=== PATIENT | female | born 1935 | race Caucasian/White ===

== ENCOUNTER → 2017-12-01 | Outpatient (CLI) | payer MEDICARE, MEDICAID ==
--- NOTE | 2017-12-01 17:50 | Diagnostic Imaging Report ---
INDICATION: Knee pain. Three views were obtained. FINDINGS: There are stable postsurgical changes of left knee arthroplasty. Hardware is in satisfactory position. Soft tissues are unremarkable. There is no fracture or dislocation. IMPRESSION: Stable left knee arthroplasty. Dictated by: Dictated on workstation # [id number]
== END ==
LOC: RAD 17:05
PROVIDERS: ATTEND Family Medicine
DX: M25.562 Pain in left knee (principal); Z96.652 Presence of left artificial knee joint
CPT/HCPCS: 73562

== ENCOUNTER 2017-12-10 09:26 | Emergency (ER) | payer MEDICARE, MEDICAID ==
[~2017-12-10] VITALS: Ht 162.6 cm; Wt 72.6 kg
[2017-12-10] MEDS ORDERED: NS IV 500 ML 500 ML IV ONE (09:37)
--- NOTE | 2017-12-10 09:44 | ED GI ---
General Stated Complaint: GI BLEED Source of Information: Patient Exam Limitations: Physical Impairments History of Present Illness Date Seen by Provider: Dec 10, 2017 Time Seen by Provider: 09:30 Initial Comments Here with report of large avery colored stool today. Apparently has had some constipation and was given milk of magnesia. She had a small avery colored stool yesterday and then a large or 2 large avery-colored stools today concerning for GI bleed. Patient denies any pain or discomfort. She does have dementia and this does limit the history. Denies vomiting or any pain currently. Timing/Duration: 12 Hours Severity/Quality: Moderate Location: Other (rectal) Radiation: No Radiation Activities at Onset: None Modifying Factors: Worsens With Defecating Associated Symptoms: No Back Pain, No Chest Pain, No Fever/Chills, Fatigue, No Nausea/Vomiting, No Shortness of Air, Weakness Allergies and Home Medications Allergies Coded Allergies: No Known Drug Allergies (Unverified , 12/10/17) Patient Home Medication List Home Medication List Reviewed: Yes Review of Systems Constitutional: see HPI, No chills, No fever Respiratory: No Symptoms Reported Cardiovascular: No Symptoms Reported Gastrointestinal: Constipated, Denies Nausea, Rectal Bleeding, Denies Vomiting Genitourinary: No Symptoms Reported Musculoskeletal: no symptoms reported Other Comments Review of systems Limited by dementia so unable to complete.. All Other Systems Reviewed Negative Unless Noted: No Past Tyfqbyo-Opviuk-Csfsrr Hx Patient Social History Alcohol Use: Denies Use Recreational Drug Use: No Smoking Status: Never a Smoker Surgeries History of Surgeries: No (unknown) Respiratory History of Respiratory Disorde: No Cardiovascular History of Cardiac Disorders: No Neurological History of Neurological Disord: Yes Neurological Disorders: Dementia Genitourinary History of Genitourinary Disor: No Gastrointestinal History of Gastrointestinal Di: No Musculoskeletal History of Musculoskeletal Dis: No Endocrine History of Endocrine Disorders: No Psychosocial History of Psychiatric Problem: Yes Behavioral Health Disorders: Depression Reviewed Nursing Assessment Reviewed/Agree w Nursing PMH: Yes Family Medical History Significant Family History: No Pertinent Family Hx Other Dementia limits history. History from records. Patient has history of dementia , glaucoma, thrombocytopenia, anemia and insomnia per records. Physical Exam Vital Signs VS - Last 72 Hours, by Label 12/10/17 09:29 Temp 96.6 Pulse 56 Resp 12 B/P (MAP) 95/52 (66) Pulse Ox 94 O2 Delivery Room Air Capillary Refill : General Appearance: WD/WN, no apparent distress HEENT: PERRL/EOMI, pharynx normal Neck: full range of motion, supple Respiratory: lungs clear, normal breath sounds Cardiovascular: regular rate, rhythm, no murmur Peripheral Pulses: 2+ Dorsalis Pedis (R), 2+ Left Dors-Pedis (L), 2+ Radial Pulses (R), 2+ Radial Pulses (L) Gastrointestinal: non tender, soft Rectal: blood streaked stool, heme positive stool, No hemorrhoids, No mass, No tenderness Extremities: non-tender, normal inspection Back: normal inspection, no CVA tenderness, no vertebral tenderness Neurologic/Psychiatric: alert, oriented x 3 Skin: normal color, warm/dry Progress/Results/Core Measures Results/Orders Lab Results Laboratory Tests Test 12/10/17 09:45 Range/Units White Blood Count 10.4 4.3-11.0 10^3/uL Red Blood Count 3.88 L 4.35-5.85 10^6/uL Hemoglobin 12.0 11.5-16.0 G/DL Hematocrit 37 35-52 % Mean Corpuscular Volume 94 80-99 FL Mean Corpuscular Hemoglobin 31 25-34 PG Mean Corpuscular Hemoglobin Concent 33 32-36 G/DL Red Cell Distribution Width 13.1 10.0-14.5 % Platelet Count 126 L 130-400 10^3/uL Mean Platelet Volume 10.6 H 7.4-10.4 FL Neutrophils (%) (Auto) 86 H 42-75 % Lymphocytes (%) (Auto) 7 L 12-44 % Monocytes (%) (Auto) 6 0-12 % Eosinophils (%) (Auto) 1 0-10 % Basophils (%) (Auto) 0 0-10 % Neutrophils # (Auto) 8.9 H 1.8-7.8 X 10^3 Lymphocytes # (Auto) 0.7 L 1.0-4.0 X 10^3 Monocytes # (Auto) 0.6 0.0-1.0 X 10^3 Eosinophils # (Auto) 0.1 0.0-0.3 10^3/uL Basophils # (Auto) 0.0 0.0-0.1 10^3/uL Neutrophils % (Manual) 87 % Lymphocytes % (Manual) 8 % Monocytes % (Manual) 4 % Eosinophils % (Manual) 1 % Band Neutrophils % Poikilocytosis SLIGHT Sodium Level 141 135-145 MMOL/L Potassium Level 4.0 3.6-5.0 MMOL/L Chloride Level 107 98-107 MMOL/L Carbon Dioxide Level 21 21-32 MMOL/L Anion Gap 13 5-14 MMOL/L Blood Urea Nitrogen 19 H 7-18 MG/DL Creatinine 0.92 0.60-1.30 MG/DL Estimat Glomerular Filtration Rate 58 BUN/Creatinine Ratio 21 Glucose Level 137 H 70-105 MG/DL Calcium Level 8.6 8.5-10.1 MG/DL Total Bilirubin 1.0 0.1-1.0 MG/DL Aspartate Amino Transf (AST/SGOT) 14 5-34 U/L Alanine Aminotransferase (ALT/SGPT) 12 0-55 U/L Alkaline Phosphatase 49 40-136 U/L Total Protein 6.1 L 6.4-8.2 GM/DL Albumin 3.7 3.2-4.5 GM/DL My Orders Orders - NITIN ERNST MD Cbc With Automated Diff (12/10/17 09:37) Comprehensive Metabolic Panel (12/10/17 09:37) Type And Screen (12/10/17 09:37) Fecal Occult Bedside (12/10/17 09:37) Saline Lock/Iv-Start (12/10/17 09:37) Ns Iv 500 Ml (Sodium Chloride 0.9%) (12/10/17 09:37) Manual Differential (12/10/17 09:45) Ziprasidone Injection (Geodon Injection) (12/10/17 10:42) Water (Sterile) For Injection (Sterile W (12/10/17 10:42) Medications Given in ED Current Medications Medications Dose Ordered Sig/José Route Start Time Stop Time Status Last Admin Dose Admin Sodium Chloride 500 ml @ 0 mls/hr Q0M ONCE IV 12/10/17 09:37 12/10/17 09:39 DC 12/10/17 09:59 500 MLS/HR Sterile Water 20 ml @ ud STK-MED ONCE .ROUTE 12/10/17 10:42 12/10/17 10:47 DC 12/10/17 10:54 1.2 MLS/HR Ziprasidone 20 mg STK-MED ONCE IM 4/5/18 10:42 12/10/17 10:46 DC 12/10/17 10:54 5 MG Vital Signs/I&O Vital Sign - Last 12Hours 12/10/17 09:29 Temp 96.6 Pulse 56 Resp 12 B/P (MAP) 95/52 (66) Pulse Ox 94 O2 Delivery Room Air Progress Note : Progress Note Seen and evaluated. IV by EMS. Labs, Hemoccult stool, normal saline bolus ordered. Monitor patient. Labs reviewed. I did page Dr. Tavares for evaluation. 1200: He has seen the patient in the ER. Hemoglobin is stable and she has not yet active bleeding. She did require Geodon 5 mg IM as she was starting to get some behavioral disturbance. This is not uncommon for her. He will discussed the case with her son who is the power of custom harvester and determine if he would like further evaluation with endoscopy. If he does then Dr. Tavares will set up colonoscopy procedure through the alf. Discharged home with return precautions. Return precautions given to alf. Departure Impression Impression: Primary Impression: Lower GI bleed Disposition: 01 HOME, SELF-CARE Condition: Stable Departure-Patient Inst. Decision time for Depature: 12:08 Referrals: SUE TAVARES RICHARD A DO (PCP/Family) Primary Care Physician Patient Instructions: Gastrointestinal Bleeding Add. Discharge Instructions: Follow-up with Dr. Taveras as needed. Dr. Tavares will talk to the power of custom harvester to discuss options of colonoscopy if the family desires. If so, he will set up colonoscopy and will call the alf for prep and orders. Discharge back to alf. Patient okay to continue current home medications. Return for worse pain, persistent or worsening bleeding or other concerns as needed. Copy Copies To 1: SUE TAVARES DO Copies To 2: GHADA TAVERAS TIMOTHY D MD Dec 10, 2017 09:44
[2017-12-10 10:03] LABS: BASOPHILS % (AUTO) 0 % (0-10); EOSINOPHILS # (AUTO) 0.1 10^3/uL (0.0-0.3); EOSINOPHILS % (AUTO) 1 % (0-10); HEMATOCRIT 37 % (35-52); LYMPHOCYTES # (AUTO) 0.7 X 10^3 (1.0-4.0); LYMPHOCYTES % (AUTO) 7 % (12-44); MEAN CORPUSCULAR HEMOGLOBIN 31 PG (25-34); MEAN CORPUSCULAR HGB CONC 33 G/DL (32-36); MEAN CORPUSCULAR VOLUME 94 FL (80-99); MEAN PLATELET VOLUME 10.6 FL (7.4-10.4); MONOCYTES # (AUTO) 0.6 X 10^3 (0.0-1.0); MONOCYTES % (AUTO) 6 % (0-12); NEUTROPHILS # (AUTO) 8.9 X 10^3 (1.8-7.8); NEUTROPHILS % (AUTO) 86 % (42-75); PLATELET COUNT 126 10^3/uL (130-400); RED BLOOD COUNT 3.88 10^6/uL (4.35-5.85); RED CELL DISTRIBUTION WIDTH 13.1 % (10.0-14.5); WHITE BLOOD COUNT 10.4 10^3/uL (4.3-11.0)
[2017-12-10 10:20] LABS: ALBUMIN 3.7 GM/DL (3.2-4.5); CALCIUM 8.6 MG/DL (8.5-10.1); CREATININE SERUM 0.92 MG/DL (0.60-1.30); TOTAL PROTEIN 6.1 GM/DL (6.4-8.2)
[2017-12-10] MEDS ORDERED: ZIPRASIDONE 20 MG INJ (GEODON) VIAL IM ONE (10:42)
[2017-12-10] MEDS ORDERED: WATER (STERILE) FOR INJECTION 20 ML ONE (10:42)
[2017-12-10 10:43] LABS: EOSINOPHILS % (MANUAL) 1 %; LYMPHOCYTES % (MANUAL) 8 %; MONOCYTES % (MANUAL) 4 %; NEUTROPHILS % (MANUAL) 87 %; POIKILOCYTOSIS SLIGHT
--- NOTE | 2017-12-10 13:04 | Consultation ---
History of Present Illness History of Present Illness Patient Consulted On(yomaira/time) 12/10/17 12:59 Time Seen by Provider: 11:59 History of Present Illness Surgery asked to consult regarding blood per rectum. HPI per ED: Here with report of large avery colored stool today. Apparently has had some constipation and was given milk of magnesia. She had a small avery colored stool yesterday and then a large or 2 large avery-colored stools today concerning for GI bleed. Patient denies any pain or discomfort. She does have dementia and this does limit the history. Denies vomiting or any pain currently. Timing/Duration: 12 Hours Severity/Quality: Moderate Location: Other (rectal) Radiation: No Radiation Activities at Onset: None Modifying Factors: Worsens With Defecating Associated Symptoms: No Back Pain, No Chest Pain, No Fever/Chills, Fatigue, No Nausea/Vomiting, No Shortness of Air, Weakness When seen pt is able to answer some questions (ie pain) but unable to answer anything about bloody BM's. All information obtained from chart. Allergies and Home Medications Allergies Coded Allergies: No Known Drug Allergies (Unverified , 12/10/17) Patient Home Medication List Home Medication List Reviewed: No (not on chart to be able to review them) Past Gajfgzr-Tzqeff-Jfsuir Hx Patient Social History Alcohol Use: Denies Use Recreational Drug Use: No Smoking Status: Never a Smoker Recent Foreign Travel: No Contact w/Someone Who Travel: No Recent Infectious Disease Expo: No Recent Hopitalizations: No Seasonal Allergies Seasonal Allergies: No Surgeries History of Surgeries: No (unknown) Respiratory History of Respiratory Disorde: No Cardiovascular History of Cardiac Disorders: No Neurological History of Neurological Disord: Yes Neurological Disorders: Dementia Genitourinary History of Genitourinary Disor: No Gastrointestinal History of Gastrointestinal Di: No Musculoskeletal History of Musculoskeletal Dis: No Endocrine History of Endocrine Disorders: No HEENT History of HEENT Disorders: No Cancer History of Cancer: No Psychosocial History of Psychiatric Problem: Yes Behavioral Health Disorders: Depression Integumentary History of Skin or Integumenta: No Blood Transfusions History of Blood Disorders: No Adverse Reaction to a Blood Tr: No Reviewed Nursing Assessment Reviewed/Agree w Nursing PMH: Yes Family Medical History Significant Family History: No Pertinent Family Hx (unable to obtain from pt) Review of Systems-General ROS-Unable to Obtain: Pt is demented and does not really answer questions Physical Exam-General Problems Physical Exam Vital Signs Vital Signs - First Documented 12/10/17 09:29 Temp 96.6 Pulse 56 Resp 12 B/P (MAP) 95/52 (66) Pulse Ox 94 O2 Delivery Room Air Capillary Refill : Less Than 3 Seconds General Appearance: WD/WN, no apparent distress Eyes: Bilateral Eye PERRL, Bilateral Eye EOMI HEENT: No scleral icterus (R), No scleral icterus (L), No pale conjunctivae (R) , No pale conjunctivae (L) Neck: supple, No thyromegaly Respiratory: lungs clear, normal breath sounds, no respiratory distress, no accessory muscle use Cardiovascular: no edema, no murmur, bradycardia Gastrointestinal: normal bowel sounds, non tender, soft, no organomegaly, no pulsatile mass Back: no CVA tenderness, no vertebral tenderness Extremities: no pedal edema, no calf tenderness Neurologic/Psychiatric: cloth neutralizer II-XII nml as tested, disoriented x 3 Skin: normal color, warm/dry Lymphatic: no adenopathy (neck, axilla or groin) Data Review Labs Laboratory Tests 12/10/17 09:45: White Blood Count 10.4, Red Blood Count 3.88L, Hemoglobin 12.0, Hematocrit 37, Mean Corpuscular Volume 94, Mean Corpuscular Hemoglobin 31, Mean Corpuscular Hemoglobin Concent 33, Red Cell Distribution Width 13.1, Platelet Count 126L, Mean Platelet Volume 10.6H, Neutrophils (%) (Auto) 86H, Lymphocytes (%) (Auto) 7L, Monocytes (%) (Auto) 6, Eosinophils (%) (Auto) 1, Basophils (%) (Auto) 0, Neutrophils # (Auto) 8.9H, Lymphocytes # (Auto) 0.7L, Monocytes # (Auto) 0.6, Eosinophils # (Auto) 0.1, Basophils # (Auto) 0.0, Neutrophils % (Manual) 87, Lymphocytes % (Manual) 8, Monocytes % (Manual) 4, Eosinophils % (Manual) 1, Band Neutrophils , Poikilocytosis SLIGHT, Sodium Level 141, Potassium Level 4.0 , Chloride Level 107, Carbon Dioxide Level 21, Anion Gap 13, Blood Urea Nitrogen 19H, Creatinine 0.92, Estimat Glomerular Filtration Rate 58, BUN/ Creatinine Ratio 21, Glucose Level 137H, Calcium Level 8.6, Total Bilirubin 1.0 , Aspartate Amino Transf (AST/SGOT) 14, Alanine Aminotransferase (ALT/SGPT) 12, Alkaline Phosphatase 49, Total Protein 6.1L, Albumin 3.7 Assessment/Plan Assessment/Plan Assessment/Plan Rectal Bleed Dementia Glaucoma Thrombocytopenia Pt's hemoglobin was 12; therefore pt is not anemic and in no distress. She probably needs a colonoscopy; she told me she had never had one. However, first I would like to get in touch with her power of workers compensation attorney and find out how aggressive the family wants to be. I agree with discharging pt back to snf and can set up colonoscopy, prep etc as an outpt after talking to family. At that time can then plan next step (ie surgery) if needed and wanted. Thank you for this consult. SUE TAVARES DO Dec 10, 2017 13:04
[2017-12-10 13:44] VITALS: BP 142/68
== END 2017-12-10 13:44 | disposition home or self-care (01) ==
LOC: EDUNIT# 09:26 → ER 09:28
DX: K92.2 Gastrointestinal hemorrhage, unspecified (principal); F03.90 Unspecified dementia, unspecified severity, without behavioral disturbance, psychotic disturbance, mood disturbance, and anxiety; F32.9 Major depressive disorder, single episode, unspecified
CPT/HCPCS: 36415; 80053; 85007; 85027; 86850; 86900; 86901; 96360; 96372; 99284

== ENCOUNTER 2018-04-09 08:03 | Emergency (ER) | payer MEDICARE, MEDICAID ==
[~2018-04-09] VITALS: Ht 162.6 cm; Wt 68.0 kg
[2018-04-09 08:18] LABS: BASOPHILS % (AUTO) 1 % (0-10); EOSINOPHILS # (AUTO) 0.2 10^3/uL (0.0-0.3); EOSINOPHILS % (AUTO) 4 % (0-10); HEMATOCRIT 39 % (35-52); HEMOGLOBIN 12.9 G/DL (11.5-16.0); LYMPHOCYTES # (AUTO) 1.4 X 10^3 (1.0-4.0); LYMPHOCYTES % (AUTO) 26 % (12-44); MEAN CORPUSCULAR HEMOGLOBIN 31 PG (25-34); MEAN CORPUSCULAR HGB CONC 33 G/DL (32-36); MEAN CORPUSCULAR VOLUME 94 FL (80-99); MEAN PLATELET VOLUME 11.4 FL (7.4-10.4); MONOCYTES # (AUTO) 0.4 X 10^3 (0.0-1.0); MONOCYTES % (AUTO) 8 % (0-12); NEUTROPHILS # (AUTO) 3.4 X 10^3 (1.8-7.8); NEUTROPHILS % (AUTO) 63 % (42-75); PLATELET COUNT 97 10^3/uL (130-400); RED BLOOD COUNT 4.11 10^6/uL (4.35-5.85); RED CELL DISTRIBUTION WIDTH 14.4 % (10.0-14.5); WHITE BLOOD COUNT 5.5 10^3/uL (4.3-11.0)
--- NOTE | 2018-04-09 08:22 | ED Trauma-Multisystem ---
General Chief Complaint: Trauma-Non Activation Stated Complaint: FALL Source of Information: EMS, Skilled Nursing Records Exam Limitations: No Limitations History of Present Illness Date Seen by Provider: Apr 09, 2018 Time Seen by Provider: 08:18 Initial Comments The patient is an 82-year-old white female resident [facility] a [facility] she is demented. She was observed while walking back to her room following breakfast to drop to her knees and then pitch forward onto her head. There was no apparent loss of consciousness. Some sort of motor activity was observed by the staff. Occurred: Just Prior to Arrival Pain/Injury Location: Face, Head Method of Injury: Fall Allergies and Home Medications Allergies Coded Allergies: No Known Drug Allergies (Unverified , 12/10/17) Patient Home Medication List Home Medication List Reviewed: Yes Review of Systems Constitutional: see HPI, other (she is unable to give any history) Past Zlkxjgj-Pdnsil-Wywtao Hx Patient Social History Alcohol Use: Denies Use Recreational Drug Use: No Smoking Status: Unknown if Ever Smoked Recent Hopitalizations: No Seasonal Allergies Seasonal Allergies: No Past Medical History Surgeries: No (unknown) Respiratory: No Cardiac: No Neurological: Yes Dementia Genitourinary: No Gastrointestinal: No Musculoskeletal: No Endocrine: No HEENT: No Cancer: No Psychosocial: Yes Depression Integumentary: No Blood Disorders: No Adverse Reaction/Blood Tranf: No Family Medical History No Pertinent Family Hx Physical Exam Vital Signs Vital Signs - First Documented 04/09/18 08:05 Temp 96.4 Pulse 112 Resp 18 B/P (MAP) 166/88 (114) Pulse Ox 95 O2 Delivery Room Air Height, Weight, BMI Height: 5'4.00" Weight: 160lbs. oz. [id number]; BMI Method:Estimated General Appearance: Other Eyes: Bilateral Eye Normal Inspection Cardiovascular: Regular Rate, Rhythm, No Edema, No Gallop, No JVD, No Murmur, Normal Peripheral Pulses Respiratory: Chest Non Tender, Lungs Clear, Normal Breath Sounds, No Accessory Muscle Use, No Respiratory Distress Gastrointestinal: Normal Bowel Sounds, No Organomegaly Back: Normal Inspection, No CVA Tenderness, No Vertebral Tenderness Extremity: Normal Capillary Refill [place] Coma Score Best Eye Response (Jax): (3) Open to Voice Best Verbal Response (Jax): (1) No Verbal Response Best Motor Response (Jax): (1) No Motor Response [place] Total: 15 (5) Progress/Results/Core Measures Results/Orders Lab Results Laboratory Tests Test 04/09/18 08:10 04/09/18 08:41 Range/Units White Blood Count 5.5 4.3-11.0 10^3/uL Red Blood Count 4.11 L 4.35-5.85 10^6/uL Hemoglobin 12.9 11.5-16.0 G/DL Hematocrit 39 35-52 % Mean Corpuscular Volume 94 80-99 FL Mean Corpuscular Hemoglobin 31 25-34 PG Mean Corpuscular Hemoglobin Concent 33 32-36 G/DL Red Cell Distribution Width 14.4 10.0-14.5 % Platelet Count 97 L 130-400 10^3/uL Mean Platelet Volume 11.4 H 7.4-10.4 FL Neutrophils (%) (Auto) 63 42-75 % Lymphocytes (%) (Auto) 26 12-44 % Monocytes (%) (Auto) 8 0-12 % Eosinophils (%) (Auto) 4 0-10 % Basophils (%) (Auto) 1 0-10 % Neutrophils # (Auto) 3.4 1.8-7.8 X 10^3 Lymphocytes # (Auto) 1.4 1.0-4.0 X 10^3 Monocytes # (Auto) 0.4 0.0-1.0 X 10^3 Eosinophils # (Auto) 0.2 0.0-0.3 10^3/uL Basophils # (Auto) 0.0 0.0-0.1 10^3/uL Sodium Level 147 H 135-145 MMOL/L Potassium Level 3.6 3.6-5.0 MMOL/L Chloride Level 112 H 98-107 MMOL/L Carbon Dioxide Level 21 21-32 MMOL/L Anion Gap 14 5-14 MMOL/L Blood Urea Nitrogen 17 7-18 MG/DL Creatinine 0.76 0.60-1.30 MG/DL Estimat Glomerular Filtration Rate > 60 BUN/Creatinine Ratio 22 Glucose Level 159 H 70-105 MG/DL Glucometer 143 H 70-110 MG/DL Calcium Level 8.9 8.5-10.1 MG/DL Total Bilirubin 0.8 0.1-1.0 MG/DL Aspartate Amino Transf (AST/SGOT) 13 5-34 U/L Alanine Aminotransferase (ALT/SGPT) 11 0-55 U/L Alkaline Phosphatase 43 40-136 U/L Total Protein 6.5 6.4-8.2 GM/DL Albumin 4.1 3.2-4.5 GM/DL Urine Color YELLOW Urine Clarity SLIGHTLY CLOUDY Urine pH 6 5-9 Urine Specific [place] 1.020 1.016-1.022 Urine Protein 2+ H NEGATIVE Urine Glucose (UA) NEGATIVE NEGATIVE Urine Ketones NEGATIVE NEGATIVE Urine Nitrite POSITIVE H NEGATIVE Urine Bilirubin NEGATIVE NEGATIVE Urine Urobilinogen NORMAL NORMAL MG/DL Urine Leukocyte Esterase 2+ H NEGATIVE Urine RBC (Auto) 2+ H NEGATIVE Urine RBC 0-2 /HPF Urine WBC 10-25 H /HPF Urine Squamous Epithelial Cells 5-10 /HPF Urine Crystals NONE /LPF Urine Bacteria LARGE H /HPF Urine Casts NONE /LPF Urine Mucus NEGATIVE /LPF Urine Culture Indicated YES My Orders Orders - ROLO NGUYEN MD Cbc With Automated Diff (04/09/18 08:10) Comprehensive Metabolic Panel (04/09/18 08:10) Ua Culture If Indicated (04/09/18 08:10) Ct Head/Cervical Spine Wo (04/09/18 08:10) Urine Culture (04/09/18 08:41) Vital Signs/I&O 04/09/18 08:05 Temp 96.4 Pulse 112 Resp 18 B/P (MAP) 166/88 (114) Pulse Ox 95 O2 Delivery Room Air Departure Communication (Admissions) 09 15. Radiology reports that the patient has a new very small subdural hematoma in the region of a previous subdural with almost calcified blood. There is considerable atrophy in the right parietal area. Discussed with Dr. Taveras at 09. Plan will be [facility] with neurochecks periodically. 0938. The CT images were shared with the patient's daughter. She reports there had been an injury to the head in the fall many years ago. No scanning was done. Therefore the age of the old subdural is unknown. Impression Primary Impression: fall with very small subdural hematoma Additional Impression: UTI Disposition: 01 HOME, SELF-CARE Condition: Stable/Unchanged Departure-Patient Inst. Decision time for Depature: 09:24 Referrals: GHADA TAVERAS DO (PCP/Family) Primary Care Physician Add. Discharge Instructions: All discharge instructions reviewed with patient and/or family. Voiced understanding. Neuro checks every 2 hours for the next 8 then every 4 hours to complete 24 hours. Omnicef for UTI. ROLO NGUYEN MD Apr 09, 2018 08:22
[2018-04-09 08:37] LABS: ALANINE AMINOTRANSFERASE 11 U/L (0-55); ALBUMIN 4.1 GM/DL (3.2-4.5); ALKALINE PHOSPHATASE 43 U/L (40-136); BILIRUBIN,TOTAL 0.8 MG/DL (0.1-1.0); BUN/CREATININE RATIO 22; CALCIUM 8.9 MG/DL (8.5-10.1); CARBON DIOXIDE 21 MMOL/L (21-32); CHLORIDE 112 MMOL/L (98-107); CREATININE SERUM 0.76 MG/DL (0.60-1.30); GFR ESTIMATED > 60; GLUCOSE 159 MG/DL (70-105); POTASSIUM 3.6 MMOL/L (3.6-5.0); SODIUM 147 MMOL/L (135-145); TOTAL PROTEIN 6.5 GM/DL (6.4-8.2)
[2018-04-09 08:52] LABS: BILIRUBIN,URINE NEGATIVE (NEGATIVE); CLARITY,URINE SLIGHTLY CLOUDY; COLOR,URINE YELLOW; GLUCOSE, URINE (UA) NEGATIVE (NEGATIVE); KETONES,URINE NEGATIVE (NEGATIVE); LEUKOCYTE ESTERASE ,URINE 2+ (NEGATIVE); NITRITE,URINE POSITIVE (NEGATIVE); PH,URINE 6 (5-9); PROTEIN,URINE 2+ (NEGATIVE); UROBILINOGEN,URINE NORMAL (NORMAL)
[2018-04-09] MEDS ORDERED: BIMA2.5D4 (09:10)
[2018-04-09 09:12] LABS: BACTERIA,URINE LARGE /HPF; RBC,URINE 0-2 /HPF
--- NOTE | 2018-04-09 09:15 | Diagnostic Imaging Report ---
PROCEDURE: CT head and CT cervical spine without contrast. TECHNIQUE: Multiple contiguous axial images were obtained through the brain and cervical spine without the use of intravenous contrast. Sagittal and coronal reformations through the cervical spine were then performed. INDICATION: Fall. Head injury. Possible seizure. COMPARISON: None. FINDINGS: CT HEAD: Low-attenuation extra-axial fluid overlying the right parietal lobe measures up to 2.3 cm maximal thickness. There is also hyperattenuation within this extra-axial collection anteriorly suspicious for acute to subacute blood products. Thin layer of subdural blood products extends anteriorly along the right temporal lobe measuring up to 0.4 cm in thickness. Advanced generalized cerebral and cerebellar parenchymal volume loss. Advanced leukoaraiosis. No CT evidence of acute infarction. Prominence of the ventricular system is proportional to the degree of atrophy. Homer cisterna magna. Osseous structures are intact. The paranasal sinuses and mastoids are clear. CT CERVICAL SPINE: Normal alignment. Vertebral body heights are preserved. No fractures. Minimal spondylotic changes. No evidence of spinal canal or neural foraminal narrowing. Moderate atherosclerotic calcifications including the carotid bifurcations. The visualized paravertebral soft tissues are otherwise unremarkable. IMPRESSION: 1. Extra-axial generally low attenuation fluid collection overlying the right parietal lobe contains areas of hyperattenuation anteriorly and is suspicious for an acute on chronic subdural hemorrhage. There is also a thin layer of subdural hemorrhage extending anteriorly from this along the right temporal lobe. 2. No acute CT findings in the cervical spine. Findings discussed with Dr. Tyrone Reyna at 9:10 a.m. on 04/09/2018. Dictated by: Dictated on workstation # [id number]
[2018-04-09] MEDS ORDERED: CEFD300C3 PO (09:40)
[2018-04-09] MEDS ORDERED: cefTRIAXone INJECTION 1,000 MG in NS (IVPB) 50 ML IV ONE (09:45)
[2018-04-09 11:35] VITALS: BP 155/73
== END 2018-04-09 11:35 | disposition home or self-care (01) ==
LOC: EDUNIT# 08:03 → ER 08:06
DX: S06.5X0A Traumatic subdural hemorrhage without loss of consciousness, initial encounter (principal); N39.0 Urinary tract infection, site not specified; R40.2142 Coma scale, eyes open, spontaneous, at arrival to emergency department; R40.2252 Coma scale, best verbal response, oriented, at arrival to emergency department; R40.2362 Coma scale, best motor response, obeys commands, at arrival to emergency department; F03.90 Unspecified dementia, unspecified severity, without behavioral disturbance, psychotic disturbance, mood disturbance, and anxiety; F32.9 Major depressive disorder, single episode, unspecified; W01.198A Fall on same level from slipping, tripping and stumbling with subsequent striking against other object, initial encounter
CPT/HCPCS: 36415; 51701; 70450; 72125; 80053; 81000; 82962; 85025; 87088; 87186; 96374

== ENCOUNTER 2018-05-25 13:07 | Inpatient (IN) | payer MEDICARE, MEDICAID ==
[~2018-05-25] VITALS: Ht 172.7 cm; Wt 65.2 kg
[~2018-05-25 13:07] MED LIST: BIMA2.5D4 OD; CEFD300C3 PO
[2018-05-25 13:30] LABS: BASOPHILS % (AUTO) 0 % (0-10); EOSINOPHILS # (AUTO) 0.1 10^3/uL (0.0-0.3); EOSINOPHILS % (AUTO) 1 % (0-10); HEMATOCRIT 35 % (35-52); HEMOGLOBIN 11.8 G/DL (11.5-16.0); LYMPHOCYTES # (AUTO) 0.9 X 10^3 (1.0-4.0); LYMPHOCYTES % (AUTO) 17 % (12-44); MEAN CORPUSCULAR HEMOGLOBIN 31 PG (25-34); MEAN CORPUSCULAR HGB CONC 34 G/DL (32-36); MEAN CORPUSCULAR VOLUME 92 FL (80-99); MEAN PLATELET VOLUME 11.5 FL (7.4-10.4); MONOCYTES # (AUTO) 0.4 X 10^3 (0.0-1.0); MONOCYTES % (AUTO) 8 % (0-12); NEUTROPHILS # (AUTO) 3.9 X 10^3 (1.8-7.8); NEUTROPHILS % (AUTO) 73 % (42-75); PLATELET COUNT 116 10^3/uL (130-400); RED BLOOD COUNT 3.84 10^6/uL (4.35-5.85); RED CELL DISTRIBUTION WIDTH 13.6 % (10.0-14.5); WHITE BLOOD COUNT 5.3 10^3/uL (4.3-11.0)
[2018-05-25 13:45] LABS: ALANINE AMINOTRANSFERASE 12 U/L (0-55); ALBUMIN 3.5 GM/DL (3.2-4.5); ALKALINE PHOSPHATASE 45 U/L (40-136); BILIRUBIN,TOTAL 0.6 MG/DL (0.1-1.0); BUN/CREATININE RATIO 22; CALCIUM 8.7 MG/DL (8.5-10.1); CARBON DIOXIDE 25 MMOL/L (21-32); CHLORIDE 114 MMOL/L (98-107); CREATININE SERUM 0.63 MG/DL (0.60-1.30); GFR ESTIMATED > 60; GLUCOSE 98 MG/DL (70-105); POTASSIUM 3.5 MMOL/L (3.6-5.0); SODIUM 148 MMOL/L (135-145); TOTAL PROTEIN 5.7 GM/DL (6.4-8.2)
[2018-05-25 13:50] LABS: FIBRIN DEGRADATION PRODUCTS 9.97 UG/ML (0.00-0.49); INR 1.2 (0.8-1.4); PROTHROMBIN TIME PATIENT 14.9 SEC (12.2-14.7)
--- NOTE | 2018-05-25 13:57 | Diagnostic Imaging Report ---
INDICATION: Unresponsive. TECHNIQUE: Axial imaging through the brain was performed without contrast. COMPARISON: Correlation is made with prior head CT from 04/09/2018. FINDINGS: Ventricles and sulci are prominent consistent with the patient's age. Periventricular low density persists consistent with senescent changes. Cerebellar volume loss is again seen. There is no sulcal effacement or midline shift. No acute intra-axial or extra-axial hemorrhage is seen. Previously noted acute on chronic subdural hematoma along the right cerebral convexity has resolved. Cisterns are patent. Visualized paranasal sinuses are clear. IMPRESSION: Chronic and senescent changes. No acute intracranial process is detected. Results were called to Dr. Dixon of the emergency department prior to this dictation. Dictated by: Dictated on workstation # [id number]
--- NOTE | 2018-05-25 14:04 | Diagnostic Imaging Report ---
INDICATION: Unresponsive. TIME OF EXAMINATION: 01:33 p.m. COMPARISON: No prior studies are available for comparison. FINDINGS: The heart size is normal. The pulmonary vascularity is unremarkable. The lungs are clear. No infiltrate, effusion or pneumothorax is detected. IMPRESSION: No acute cardiopulmonary process is detected. Dictated by: Dictated on workstation # [id number]
[2018-05-25 14:05] LABS: CLARITY,URINE CLEAR; COLOR,URINE YELLOW; GLUCOSE, URINE (UA) NEGATIVE (NEGATIVE); KETONES,URINE NEGATIVE (NEGATIVE); LEUKOCYTE ESTERASE ,URINE 3+ (NEGATIVE); NITRITE,URINE POSITIVE (NEGATIVE); PH,URINE 5 (5-9); PROTEIN,URINE 2+ (NEGATIVE); UROBILINOGEN,URINE 1 MG/DL (NORMAL)
[2018-05-25 14:20] LABS: BACTERIA,URINE LARGE /HPF; BILIRUBIN,URINE 1+ (NEGATIVE); RBC,URINE 0-2 /HPF
[2018-05-25] MEDS ORDERED: DONE10TA12 PO (14:24)
[2018-05-25] MEDS ORDERED: CYAN1TAB26 PO (14:24)
[2018-05-25] MEDS ORDERED: FERR325T18 PO (14:24)
[2018-05-25] MEDS ORDERED: DOCU-143 PO (14:24)
[2018-05-25] MEDS ORDERED: cefTRIAXone FOR IV USE 1,000 MG in NS (IVPB) 50 ML IV ONE (14:45)
--- NOTE | 2018-05-25 15:09 | ED General ---
General Chief Complaint: Neuro-Stroke Like Symptoms Stated Complaint: UNRESPONSIVE Nursing Triage Note: EMS STAFF PASS ON THAT THE PT WAS FOUND LESS RESPONSIVE AFTER LAYING DOWN FROM A NAP. PT IS RESPONSIVE CHEIFLY TO STIMULI UPON PRESENTATION. PT HAS A HX OF INTRACRANIAL HEMORRHAGE FROM ONE MONTH PRIOR D/T FALL Nursing Sepsis Screen: No Definite Risk Source of Information: EMS, Long-Term Records, Old Records Exam Limitations: Physical Impairments History of Present Illness Date Seen by Provider: May 25, 2018 Time Seen by Provider: 13:09 Initial Comments This 82-year-old woman presents to the emergency room after being found unresponsive by correction staff. Patient had a fall about 6 weeks ago resulting in intracranial bleed. She seemed to be recovering well from that. Today she was out and about in the correction pacing as she usually does. She was last seen in her normal condition at around 10:00. When staff went to check on her between 12:00 and 12:15, they found her to be unresponsive. EMS was activated. Patient was only responsive to painful stimuli for EMS. Stroke activation was paged. Patient is not a TPA candidate due to recent intracranial bleed. Allergies and Home Medications Allergies Coded Allergies: No Known Drug Allergies (Unverified , 12/10/17) Home Medications Cefdinir 300 Mg Capsule, 300 MG PO twice a day Began on a.m. 04/10 Prescribed by: ROLO NGUYEN on 04/09/18 0940 Docusate Sodium 100 Mg Capsule, 100 MG PO DAILY, (Reported) Patient Home Medication List Home Medication List Reviewed: Yes Review of Systems Review of Systems Constitutional: see HPI EENTM: see HPI Respiratory: no symptoms reported Cardiovascular: no symptoms reported Gastrointestinal: no symptoms reported Genitourinary: no symptoms reported : No Musculoskeletal: no symptoms reported Skin: no symptoms reported Psychiatric/Neurological: See HPI Hematologic/Lymphatic: No Symptoms Reported Immunological/Allergic: no symptoms reported Past Ajfhesa-Mgiehe-Pmqxpi Hx Past Med/Social Hx: Reviewed Nursing Past Med/Soc Hx Patient Social History Alcohol Use: Denies Use Recreational Drug Use: No Smoking Status: Former Smoker Recent Foreign Travel: No Contact w/Someone Who Travel: No Recent Infectious Disease Expo: No Recent Hopitalizations: No Seasonal Allergies Seasonal Allergies: No Past Medical History Surgeries: No (unknown) Respiratory: No Cardiac: No Neurological: Yes Dementia, Stroke : No Genitourinary: Yes UTI-Chronic Gastrointestinal: Yes Chronic Constipation Musculoskeletal: No Endocrine: No HEENT: No Cancer: No Psychosocial: Yes Depression Integumentary: No Blood Disorders: Yes (ANEMIA) Adverse Reaction/Blood Tranf: No Family Medical History No Pertinent Family Hx Physical Exam Vital Signs Vital Signs - First Documented 05/25/18 13:07 Temp 97.3 Pulse 51 Resp 18 B/P (MAP) 126/64 (84) Pulse Ox 97 O2 Delivery Room Air Capillary Refill : Less Than 3 Seconds Height, Weight, BMI Height: 5'8.00" Weight: 180lbs. oz. 81.319972nf; BMI Method:Stated General Appearance: WD/WN, Other (Minimally responsive) HEENT: Normal ENT Inspection, Other (Pupils constricted but equal bilaterally) Neck: Normal Inspection ( but equal bilaterally) Respiratory: Lungs Clear, Normal Breath Sounds, No Accessory Muscle Use, No Respiratory Distress Cardiovascular: Regular Rate, Rhythm, No Edema, No Murmur, Normal Peripheral Pulses Gastrointestinal: Normal Bowel Sounds, Non Tender, Soft Extremity: Normal Inspection, No Pedal Edema Neurologic/Psychiatric: Other (Patient is minimally responsive. She will sometimes open her eyes on command. She does have some spontaneous purposeful movement such as scratching and itching. She is primarily a phasic. She does holler "ouch" to painful stimuli on bilateral extremities. Patient has answered some questions with one-word answers) Skin: Normal Color, Warm/Dry Progress/Results/Core Measures Suspected Sepsis Recent Fever Within 48 Hours: No Infection Criteria Present: None New/Unexplained Altered Menta: No Sepsis Screen: No Definite Risk SIRS Temperature:97.3 Pulse: 51 Respiratory Rate: 18 Laboratory Tests 05/25/18 13:07: White Blood Count 5.3 Blood Pressure 126 /64 Mean: 84 Laboratory Tests 05/25/18 13:07: Creatinine 0.63, INR Comment 1.2, Platelet Count 116L, Total Bilirubin 0.6 Results/Orders Lab Results Laboratory Tests Test 05/25/18 13:07 05/25/18 13:54 Range/Units White Blood Count 5.3 4.3-11.0 10^3/uL Red Blood Count 3.84 L 4.35-5.85 10^6/uL Hemoglobin 11.8 11.5-16.0 G/DL Hematocrit 35 35-52 % Mean Corpuscular Volume 92 80-99 FL Mean Corpuscular Hemoglobin 31 25-34 PG Mean Corpuscular Hemoglobin Concent 34 32-36 G/DL Red Cell Distribution Width 13.6 10.0-14.5 % Platelet Count 116 L 130-400 10^3/uL Mean Platelet Volume 11.5 H 7.4-10.4 FL Neutrophils (%) (Auto) 73 42-75 % Lymphocytes (%) (Auto) 17 12-44 % Monocytes (%) (Auto) 8 0-12 % Eosinophils (%) (Auto) 1 0-10 % Basophils (%) (Auto) 0 0-10 % Neutrophils # (Auto) 3.9 1.8-7.8 X 10^3 Lymphocytes # (Auto) 0.9 L 1.0-4.0 X 10^3 Monocytes # (Auto) 0.4 0.0-1.0 X 10^3 Eosinophils # (Auto) 0.1 0.0-0.3 10^3/uL Basophils # (Auto) 0.0 0.0-0.1 10^3/uL Prothrombin Time 14.9 H 12.2-14.7 SEC INR Comment 1.2 0.8-1.4 Activated Partial Thromboplast Time 27 24-35 SEC D-Dimer 9.97 H 0.00-0.49 UG/ML Sodium Level 148 H 135-145 MMOL/L Potassium Level 3.5 L 3.6-5.0 MMOL/L Chloride Level 114 H 98-107 MMOL/L Carbon Dioxide Level 25 21-32 MMOL/L Anion Gap 9 5-14 MMOL/L Blood Urea Nitrogen 14 7-18 MG/DL Creatinine 0.63 0.60-1.30 MG/DL Estimat Glomerular Filtration Rate > 60 BUN/Creatinine Ratio 22 Glucose Level 98 70-105 MG/DL Calcium Level 8.7 8.5-10.1 MG/DL Corrected Calcium 9.1 8.5-10.1 MG/DL Total Bilirubin 0.6 0.1-1.0 MG/DL Aspartate Amino Transf (AST/SGOT) 11 5-34 U/L Alanine Aminotransferase (ALT/SGPT) 12 0-55 U/L Alkaline Phosphatase 45 40-136 U/L Troponin I < 0.30 <0.30 NG/ML Total Protein 5.7 L 6.4-8.2 GM/DL Albumin 3.5 3.2-4.5 GM/DL Urine Color YELLOW Urine Clarity CLEAR Urine pH 5 5-9 Urine Specific [place] 1.025 H 1.016-1.022 Urine Protein 2+ H NEGATIVE Urine Glucose (UA) NEGATIVE NEGATIVE Urine Ketones NEGATIVE NEGATIVE Urine Nitrite POSITIVE H NEGATIVE Urine Bilirubin 1+ H NEGATIVE Urine Urobilinogen 1 NORMAL MG/DL Urine Leukocyte Esterase 3+ H NEGATIVE Urine RBC (Auto) 3+ H NEGATIVE Urine RBC 0-2 /HPF Urine WBC 10-25 H /HPF Urine Squamous Epithelial Cells 5-10 /HPF Urine Crystals NONE /LPF Urine Bacteria LARGE H /HPF Urine Casts NONE /LPF Urine Mucus NEGATIVE /LPF Urine Culture Indicated YES Micro Results Microbiology 05/25/18 Urine Culture - Preliminary, Resulted Sent To [facility] My Orders Orders - LUIS DIXON MD Cbc With Automated Diff (05/25/18 13:19) Protime With Inr (05/25/18 13:19) Partial Thromboplastin Time (05/25/18 13:19) Comprehensive Metabolic Panel (05/25/18 13:19) Fibrin Degradation Products (05/25/18 13:19) Troponin I (05/25/18 13:19) Ua Culture If Indicated (05/25/18 13:19) Chest 1 View, Ap/Pa Only (05/25/18 13:19) Catheter(Urinary) Insert & Ass 03,15 (05/25/18 13:19) Ekg Tracing (05/25/18 13:19) Nothing By Mouth (05/25/18 Dinner) Accucheck Stat ONCE (05/25/18 13:19) Saline Lock/Iv-Start (05/25/18 13:19) Saline Lock/Iv-Start (05/25/18 13:19) Vital Signs Stroke Patient Q15M (05/25/18 13:19) Ct Head Wo-R/O Stroke (05/25/18 13:19) O2 (05/25/18 13:19) Intake & Output 06,14,22 (05/25/18 13:19) Monitor-Rhythm Ecg Trace Only (05/25/18 13:19) Dysphagia Screening Tool (05/25/18 13:19) Post Thrombolytic Adminstratio (05/25/18 13:19) Lipid Panel (05/26/18 06:00) Urine Culture (05/25/18 13:54) Ceftriaxone For Iv Use (Rocephin For I (05/25/18 14:45) Ct Angio Head/Neck (05/25/18 20:04) Medications Given in ED Current Medications Medications Dose Ordered Sig/José Route Start Time Stop Time Status Last Admin Dose Admin Ceftriaxone Sodium 1000 mg/ Sodium Chloride 50 ml @ 100 mls/hr ONCE ONCE IV 05/25/18 14:45 05/25/18 15:14 DC 05/25/18 15:08 100 MLS/HR Vital Signs/I&O 05/25/18 05/25/18 05/25/18 05/25/18 13:07 13:10 15:50 16:02 Temp 97.3 97.7 96.6 Pulse 51 56 75 Resp 18 18 B/P (MAP) 126/64 (84) 137/67 (90) 168/81 Pulse Ox 97 97 96 97 O2 Delivery Room Air Room Air Room Air Room Air 05/25/18 05/25/18 16:57 17:00 Pulse 55 O2 Delivery Room Air Capillary Refill : Less Than 3 Seconds Blood Pressure Mean: 84 Progress Note #1: Progress Note Stroke activation was paged. Patient was not a TPA candidate due to recent intracranial bleed. CT of the head was unremarkable. Labs were unremarkable with the exception of urinalysis which demonstrated significant urinary tract infection. Treatment for UTI was started with Rocephin. Case was discussed with Dr. Taveras who agrees with admission. Patient was felt to be having systemic effects from UTI and dementia. Progress Note #2: Time: 20:09 Progress Note Case was reconsidered and Dr. Avilez, stroke neurologist at [facility], was contacted. He agreed with initial management and avoidance of TPA. He also agrees presentation sounds more like a global or metabolic problems such as infection/UTI. However, he had agrees it is reasonable to completely rule out large vessel CVA with a CT angiogram. Intravascular interventions cannot be performed up to 24 hours out from last known well time. Patient's last known well time was at 10:00. I contacted Dr. Taveras discussed the case with him. He agrees with performing the CT angiogram. Angiogram was ordered as a stat study with results to be called to Dr. Taveras. Plan was discussed with patient's nurse. ECG Initial ECG Impression Date: May 25, 2018 Initial ECG Impression Time: 13:40 Initial ECG Rate: 57 Initial ECG Rhythm: Normal Sinus Initial ECG Intervals: Normal Initial ECG Impression: Normal Comment Normal sinus rhythm with no ST elevation or depression. No abnormal intervals or axis deviation. Diagnostic Imaging Diagonstic Imaging: CT Plain Films/CT/US/NM/MRI: head Comments CT head viewed by me and report reviewed. See report below: NAME: JACE PARKER [facility] REC#: [id number] PT STATUS: REG ER : 1935 PHYSICIAN: LUIS DIXON MD ADMIT DATE: 05/25/18/ER Signed Date of Exam: 05/25/18 CT HEAD WO-R/O STROKE INDICATION: Unresponsive. TECHNIQUE: Axial imaging through the brain was performed without contrast. COMPARISON: Correlation is made with prior head CT from 04/09/2018. FINDINGS: Ventricles and sulci are prominent consistent with the patient's age. Periventricular low density persists consistent with senescent changes. Cerebellar volume loss is again seen. There is no sulcal effacement or midline shift. No acute intra-axial or extra-axial hemorrhage is seen. Previously noted acute on chronic subdural hematoma along the right cerebral convexity has resolved. Cisterns are patent. Visualized paranasal sinuses are clear. IMPRESSION: Chronic and senescent changes. No acute intracranial process is detected. Results were called to Dr. Dixon of the emergency department prior to this dictation. Dictated by: Dictated on workstation # [id number] Dict: 05/25/18 1351 Trans: 05/25/18 1513 Interpreted by: FARZANA RIZO MD Electronically signed by: FARZANA RIZO MD 05/25/18 1513 Diagonstic Imaging: Xray Plain Films/CT/US/NM/MRI: chest Comments NAME: JACE PARKER [facility] REC#: [id number] PT STATUS: REG ER : 1935 PHYSICIAN: LUIS DIXON MD ADMIT DATE: 05/25/18/ER Signed Date of Exam: 05/25/18 CHEST 1 VIEW, AP/PA ONLY INDICATION: Unresponsive. TIME OF EXAMINATION: 01:33 p.m. COMPARISON: No prior studies are available for comparison. FINDINGS: The heart size is normal. The pulmonary vascularity is unremarkable. The lungs are clear. No infiltrate, effusion or pneumothorax is detected. IMPRESSION: No acute cardiopulmonary process is detected. Dictated by: Dictated on workstation # [id number] Dict: 05/25/18 1400 Trans: 05/25/18 1512 Interpreted by: FARZANA RIZO MD Electronically signed by: FARZAAN RIZO MD 05/25/18 1512 Onset of Symptoms Date of Onset of Symptoms: May 25, 2018 NIH Stroke Scale Assessment Level of Consciousness: 2=By repeated stimulation (2), Level of Consciousness- Questions: 2=Answer neither question (2), LOC Commands: 2=Performs neither task (2), Visual Brooks: 3=Bilateral Hemianopia (3), Facial Movement (Facial Paresis) : 1=Minor paralysis (1), Motor Function-Arms Right: 1=Drift (1), Motor Function- Arms Left: 1=Drift (1), Motor Function-Legs Right: 3=No effort/gravity (3), Motor Function-Legs Left: 3=No effort/gravity (3), Limb Ataxia: 0=Absent (0), Sensory: 0=Normal:no loss (0), Best Language: 1=Mild to moderat aphasia (1), Dysarthria: 0=Normal (0), Extinction & Inattention: 2=ProfoundHemiInattention (2 ), Total: 21 Stroke Thrombolytic Exclusion Age 18 or Over: Yes Departure Communication (Admissions) Time/Spoke to Admitting Phy: 14:41 Dr. Taveras Impression Primary Impression: Altered mental status Qualified Codes: R41.82 - Altered mental status, unspecified Additional Impression: Urinary tract infection Qualified Codes: N39.0 - Urinary tract infection, site not specified Disposition: ADMITTED INPATIENT Condition: Improved Admissions Decision to Admit Reason: Admit from ER (General) Decision to Admit/Date: May 25, 2018 Time/Decision to Admit Time: 14:41 Departure-Patient Inst. Referrals: GHADA TAVERAS DO (PCP/Family) Primary Care Physician LUIS DIXON MD May 25, 2018 15:09
[2018-05-25 15:50] VITALS: BP 137/67
[2018-05-25] MEDS ORDERED: CATHETER FLUSH 10 ML SYR IV PRN (16:15)
[2018-05-25] MEDS ORDERED: ONDANSETRON 4 MG/2 ML (SDV) Z0FRAN IV PRN (16:15)
[2018-05-25] MEDS: D5 1/2 NS W/KCL 20 MEQ/L 1,000 ML IV SCH (16:33)
--- NOTE | 2018-05-25 18:36 | History & Physicial ---
History of Present Illness History of Present Illness Reason for visit/HPI Patient is a resident of a long-term. Patient became unresponsive. Received a call from the nurse at the long-term stating that the patient's eyes were fixed and nonresponsive. Patient is a full code. Patient has Alzheimer's. Patient referred to the emergency room. Urine shows a bed UTI. Patient only responds to stimulation. Patient this evening does open her eyes but does not communicate. Date of Admission May 25, 2018 at 14:45 Time Seen by a Provider: 18:32 I consulted on this patient on 05/25/18 18:32 Attending Physician Matty Taveras DO Admitting Physician Matty Taveras DO Consult Allergies and Home Medications Allergies Coded Allergies: No Known Drug Allergies (Unverified , 12/10/17) Home Medications Cefdinir 300 Mg Capsule, 300 MG PO twice a day Began on a.m. 04/10 Prescribed by: ROLO NGUYEN on 04/09/18 0940 Docusate Sodium 100 Mg Capsule, 100 MG PO DAILY, (Reported) Patient Home Medication List Home Medication List Reviewed: No Past Abludbj-Yucflv-Apuscd Hx Patient Social History Employed/Student: retired Alcohol Use: Denies Use Recreational Drug Use: No Smoking Status: Unknown if Ever Smoked Recent Foreign Travel: No (UNKNOWN) Contact w/other who traveled: No (UNKNOWN) Recent Hopitalizations: No Recent Infectious Disease Expo: No (UNKNOWN) Seasonal Allergies Seasonal Allergies: No Surgeries No (unknown) Respiratory No Cardiovascular No Neurological Yes Dementia, Stroke Reproductive System : No Genitourinary Yes UTI-Chronic Gastrointestinal Yes Chronic Constipation Musculoskeletal No Endocrine History of Endocrine Disorders: No HEENT History of HEENT Disorders: No Cancer No Psychosocial History of Psychiatric Problem: Yes Behavioral Health Disorders: Depression Integumentary History of Skin or Integumenta: No Blood Transfusions History of Blood Disorders: Yes (ANEMIA) Adverse Reaction to a Blood Tr: No Family Medical History Significant Family History: No Pertinent Family Hx Review of Systems Constitutional: malaise, weakness EENTM: no symptoms reported Respiratory: no symptoms reported Cardiovascular: no symptoms reported Genitourinary: no symptoms reported, other (Has UTI) Physical Exam Vital Signs Vital Signs - First Documented 05/25/18 13:07 Temp 97.3 Pulse 51 Resp 18 B/P (MAP) 126/64 (84) Pulse Ox 97 O2 Delivery Room Air Capillary Refill : Less Than 3 Seconds Height, Weight, BMI Height: 5'8.00" Weight: 143lbs. 12.8oz. 65.720985hb; BMI Method:Stated General Appearance: No Apparent Distress, WD/WN Eyes: Bilateral Eye Normal Inspection HEENT: Normal ENT Inspection Neck: Normal Inspection Respiratory: Lungs Clear, No Accessory Muscle Use, No Respiratory Distress Cardiovascular: Regular Rate, Rhythm, Other (,) Gastrointestinal: Non Tender, Soft Assessment/Plan Assessment and Plan Acute mental status change. UTI. Alzheimer's. Admission Diagnosis Admission Status: Inpatient Order (span 2 midnights) Reason for Inpatient Admission: Nonresponsive. Acute mental status change. Patient had UTI which is bad Clinical Quality Measures DVT/VTE Risk/Contraindication: Risk Factor Score Per Nursin RFS Level Per Nursing on Admit: 4+=Very High Stroke: Date of last known well: May 25, 2018 MATTY TAVERAS DO May 25, 2018 18:36
[2018-05-25] MEDS: ENOXAPARIN 40 MG/0.4 ML (LOVENOX) SYR SC SCH (18:47)
[2018-05-25] MEDS ORDERED: FLU QUADRIvalent (5+ YOA) 2018-2019 (AFLURIA) 0.5 ML IM ONE (20:00)
[2018-05-25 20:30] VITALS: BP 138/78
[2018-05-25] MEDS ORDERED: IOHEXOL 350 MG/ML 100 ML (OMNIPAQUE 350) VIAL IV ONE (20:45)
[2018-05-25] MEDS ORDERED: NS 250 ML (IVPB) BAG IV ONE (20:45)
--- NOTE | 2018-05-25 21:20 | Diagnostic Imaging Report ---
PROCEDURE: CT angiography of the head and CT angiography of the neck with and without contrast. TECHNIQUE: Contiguous noncontrast images were obtained from the skull base through the vertex. After intravenous contrast administration, helical CT angiography of the neck was performed. Source data was reformatted into multiple MIP projections. Delayed post contrast acquisition was also obtained. INDICATION: "Rule out stroke". I have no other lateralizing history to suggest a site of suspected lesion. CT ANGIO NECK: There is poor arterial opacification. The vertebral arteries in the neck are grossly unremarkable and symmetric. There is mild plaque, non-stenosing calcified at the carotid bulbs and bifurcations. The cervical ICAs are patent. There is heavy calcified plaque at the cavernous segments of the intracranial carotids without convincing evidence for a hemodynamically significant stenosis. The bilateral A1 segments, the ACOM, the anterior cerebral arteries were unremarkable. Bilateral middle cerebral arterial segments symmetric and unremarkable. The intrathecal vertebral arteries, the basilar and the posterior cerebral arteries are unremarkable. 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 IMPRESSION: No large vessel occlusion, aneurysm, vascular malformation or branch occlusion. No acute-appearing abnormality apparent. Patient had a fall 1 month ago with a subdural hemorrhage. Exam compared with head CT earlier this same date. Dictated by: Dictated on workstation # [id number]
[2018-05-26 00:31] VITALS: BP 158/82
[2018-05-26] MEDS: D5 1/2 NS W/KCL 20 MEQ/L 1,000 ML IV SCH ×3 (01:34→17:29)
[2018-05-26 04:07] VITALS: BP 153/74
[2018-05-26 06:02] LABS: BASOPHILS % (AUTO) 0 % (0-10); EOSINOPHILS # (AUTO) 0.1 10^3/uL (0.0-0.3); EOSINOPHILS % (AUTO) 2 % (0-10); HEMATOCRIT 34 % (35-52); HEMOGLOBIN 11.4 G/DL (11.5-16.0); LYMPHOCYTES % (AUTO) 18 % (12-44); MEAN CORPUSCULAR HEMOGLOBIN 31 PG (25-34); MEAN CORPUSCULAR HGB CONC 34 G/DL (32-36); MEAN CORPUSCULAR VOLUME 92 FL (80-99); MEAN PLATELET VOLUME 11.5 FL (7.4-10.4); MONOCYTES # (AUTO) 0.4 X 10^3 (0.0-1.0); MONOCYTES % (AUTO) 8 % (0-12); NEUTROPHILS # (AUTO) 4.1 X 10^3 (1.8-7.8); NEUTROPHILS % (AUTO) 72 % (42-75); PLATELET COUNT 106 10^3/uL (130-400); RED BLOOD COUNT 3.71 10^6/uL (4.35-5.85); RED CELL DISTRIBUTION WIDTH 13.8 % (10.0-14.5); WHITE BLOOD COUNT 5.7 10^3/uL (4.3-11.0)
[2018-05-26 06:23] LABS: ALANINE AMINOTRANSFERASE 9 U/L (0-55); ALBUMIN 3.2 GM/DL (3.2-4.5); ALKALINE PHOSPHATASE 43 U/L (40-136); BILIRUBIN,TOTAL 0.6 MG/DL (0.1-1.0); BUN/CREATININE RATIO 12; CALCIUM 8.2 MG/DL (8.5-10.1); CARBON DIOXIDE 21 MMOL/L (21-32); CHLORIDE 115 MMOL/L (98-107); CHOLESTEROL 145 MG/DL (< 200); CREATININE SERUM 0.57 MG/DL (0.60-1.30); GFR ESTIMATED > 60; GLUCOSE 116 MG/DL (70-105); HDL CHOLESTEROL 28 MG/DL (40-60); POTASSIUM 3.5 MMOL/L (3.6-5.0); SODIUM 143 MMOL/L (135-145); TOTAL PROTEIN 5.2 GM/DL (6.4-8.2); TRIGLYCERIDES 99 MG/DL (<150); VLDL CHOLESTEROL 20 MG/DL (5-40)
--- NOTE | 2018-05-26 07:56 | Progress Note (SOAP) ---
Subjective Time Seen by a Provider: 07:51 Subjective/Events-last exam Patient is nonresponsive this morning. Patient does not respond to pain. Heart rate at 40. To get psychologist social involved. Consult cardiology. Patient has Alzheimer's. UTI Objective Exam Vital Signs Date Time Temp Pulse Resp B/P (MAP) Pulse Ox O2 Delivery O2 Flow Rate FiO2 05/26/18 07:29 40 05/26/18 04:07 97.8 61 16 153/74 (100) 97 Room Air 05/26/18 01:00 51 05/26/18 00:31 97.8 65 17 158/82 (107) 95 Room Air 05/25/18 20:30 98.6 54 18 138/78 (98) 96 Room Air 05/25/18 20:00 96 Room Air 05/25/18 19:00 62 05/25/18 17:00 Room Air 05/25/18 16:57 55 05/25/18 16:02 96.6 75 18 168/81 97 Room Air 05/25/18 15:50 97.7 56 18 137/67 (90) 96 Room Air 05/25/18 13:10 97 Room Air 05/25/18 13:07 97.3 51 18 126/64 (84) 97 Room Air I & O 05/26/18 07:00 Intake Total 1300 ml Output Total 500 ml Balance 800 ml Capillary Refill : Less Than 3 Seconds General Appearance: No Apparent Distress, WD/WN Results Lab Laboratory Tests 05/25/18 13:07: White Blood Count 5.3, Red Blood Count 3.84L, Hemoglobin 11.8, Hematocrit 35, Mean Corpuscular Volume 92, Mean Corpuscular Hemoglobin 31, Mean Corpuscular Hemoglobin Concent 34, Red Cell Distribution Width 13.6, Platelet Count 116L, Mean Platelet Volume 11.5H, Neutrophils (%) (Auto) 73, Lymphocytes (%) (Auto) 17 , Monocytes (%) (Auto) 8, Eosinophils (%) (Auto) 1, Basophils (%) (Auto) 0, Neutrophils # (Auto) 3.9, Lymphocytes # (Auto) 0.9L, Monocytes # (Auto) 0.4, Eosinophils # (Auto) 0.1, Basophils # (Auto) 0.0, Prothrombin Time 14.9H, INR Comment 1.2, Activated Partial Thromboplast Time 27, D-Dimer 9.97H, Sodium Level 148H, Potassium Level 3.5L, Chloride Level 114H, Carbon Dioxide Level 25, Anion Gap 9, Blood Urea Nitrogen 14, Creatinine 0.63, Estimat Glomerular Filtration Rate > 60, BUN/Creatinine Ratio 22, Glucose Level 98, Calcium Level 8.7, Corrected Calcium 9.1, Total Bilirubin 0.6, Aspartate Amino Transf (AST/ SGOT) 11, Alanine Aminotransferase (ALT/SGPT) 12, Alkaline Phosphatase 45, Troponin I < 0.30, Total Protein 5.7L, Albumin 3.5 05/25/18 13:54: Urine Color YELLOW, Urine Clarity CLEAR, Urine pH 5, Urine Specific [place] 1.025H, Urine Protein 2+H, Urine Glucose (UA) NEGATIVE, Urine Ketones NEGATIVE, Urine Nitrite POSITIVEH, Urine Bilirubin 1+H, Urine Urobilinogen 1, Urine Leukocyte Esterase 3+H, Urine RBC (Auto) 3+H, Urine RBC 0-2, Urine WBC 10-25H, Urine Squamous Epithelial Cells 5-10, Urine Crystals NONE, Urine Bacteria LARGEH , Urine Casts NONE, Urine Mucus NEGATIVE, Urine Culture Indicated YES 05/26/18 05:35: White Blood Count 5.7, Red Blood Count 3.71L, Hemoglobin 11.4L, Hematocrit 34L, Mean Corpuscular Volume 92, Mean Corpuscular Hemoglobin 31, Mean Corpuscular Hemoglobin Concent 34, Red Cell Distribution Width 13.8, Platelet Count 106L, Mean Platelet Volume 11.5H, Neutrophils (%) (Auto) 72, Lymphocytes (%) (Auto) 18 , Monocytes (%) (Auto) 8, Eosinophils (%) (Auto) 2, Basophils (%) (Auto) 0, Neutrophils # (Auto) 4.1, Lymphocytes # (Auto) 1.0, Monocytes # (Auto) 0.4, Eosinophils # (Auto) 0.1, Basophils # (Auto) 0.0, Sodium Level 143, Potassium Level 3.5L, Chloride Level 115H, Carbon Dioxide Level 21, Anion Gap 7, Blood Urea Nitrogen 7, Creatinine 0.57L, Estimat Glomerular Filtration Rate > 60, BUN/ Creatinine Ratio 12, Glucose Level 116H, Calcium Level 8.2L, Corrected Calcium 8.8, Total Bilirubin 0.6, Aspartate Amino Transf (AST/SGOT) 11, Alanine Aminotransferase (ALT/SGPT) 9, Alkaline Phosphatase 43, Total Protein 5.2L, Albumin 3.2, Triglycerides Level 99, Cholesterol Level 145, LDL Cholesterol Direct 99, VLDL Cholesterol 20, HDL Cholesterol 28L Microbiology 05/25/18 Urine Culture - Preliminary, Resulted Sent To [facility] Assessment/Plan Assessment/Plan Assess & Plan/Chief Complaint Alzheimer's. UTI. Nonresponsive. Bradycardia. To get psychologist social and cardiology involved Clinical Quality Measures Admission Status Admission Dx Acute mental status change. UTI. Alzheimer's. DVT/VTE Risk/Contraindication: Risk Factor Score Per Nursin RFS Level Per Nursing on Admit: 4+=Very High Stroke: Date of last known well: May 25, 2018 GHADA TAVERAS DO May 26, 2018 07:56
[2018-05-26] MEDS: cefTRIAXone 1 GM/NS 50 ML IVPB IV SCH ×2 (08:58)
--- NOTE | 2018-05-26 11:26 | Consultation-Cardiology ---
HPI-Cardiology Cardiology Consultation Date of Consultation 05/26/18 Date of Admission Time Seen by Provider: 11:20 Indication: Change in mental status, bradycardia HPI 82 years old lady with history of dementia, was brought to the hospital due to change in mental status, upon my evaluation patient was laying in bed, does not respond to verbal or tactile stimuli. It appear that she has been this way in the hospital. Previously she was moving and communicating. It was reported to me that overnight she tried to climb out of bed. Noted to be bradycardic with a heart rate in the 40s. Unable to provide any history. History was obtained by reviewing her records Home Medications & Allergies Allergies: Coded Allergies: No Known Drug Allergies (Unverified , 12/10/17) Home Medication List Reviewed: Yes [id number] Hx Patient Social History Employed/Student: retired Alcohol Use: Denies Use Recreational Drug Use: No Smoking Status: Unknown if Ever Smoked Recent Foreign Travel: No (UNKNOWN) Recent Infectious Disease Expo: No (UNKNOWN) Recent Hopitalizations: Yes Past Medical History Unable to provide past medical history Family Medical History Significant Family History: No Pertinent Family Hx Family Medical Hx Unable to provide family history Review of Systems Constitutional: other (Unable to provide review of systems due to her current condition) Reviewed Test Results Reviewed Test Results Lab Laboratory Tests Test 05/25/18 13:07 05/25/18 13:54 05/26/18 05:35 Range/Units White Blood Count 5.3 5.7 4.3-11.0 10^3/uL Red Blood Count 3.84 L 3.71 L 4.35-5.85 10^6/uL Hemoglobin 11.8 11.4 L 11.5-16.0 G/DL Hematocrit 35 34 L 35-52 % Mean Corpuscular Volume 92 92 80-99 FL Mean Corpuscular Hemoglobin 31 31 25-34 PG Mean Corpuscular Hemoglobin Concent 34 34 32-36 G/DL Red Cell Distribution Width 13.6 13.8 10.0-14.5 % Platelet Count 116 L 106 L 130-400 10^3/uL Mean Platelet Volume 11.5 H 11.5 H 7.4-10.4 FL Neutrophils (%) (Auto) 73 72 42-75 % Lymphocytes (%) (Auto) 17 18 12-44 % Monocytes (%) (Auto) 8 8 0-12 % Eosinophils (%) (Auto) 1 2 0-10 % Basophils (%) (Auto) 0 0 0-10 % Neutrophils # (Auto) 3.9 4.1 1.8-7.8 X 10^3 Lymphocytes # (Auto) 0.9 L 1.0 1.0-4.0 X 10^3 Monocytes # (Auto) 0.4 0.4 0.0-1.0 X 10^3 Eosinophils # (Auto) 0.1 0.1 0.0-0.3 10^3/uL Basophils # (Auto) 0.0 0.0 0.0-0.1 10^3/uL Prothrombin Time 14.9 H 12.2-14.7 SEC INR Comment 1.2 0.8-1.4 Activated Partial Thromboplast Time 27 24-35 SEC D-Dimer 9.97 H 0.00-0.49 UG/ML Sodium Level 148 H 143 135-145 MMOL/L Potassium Level 3.5 L 3.5 L 3.6-5.0 MMOL/L Chloride Level 114 H 115 H 98-107 MMOL/L Carbon Dioxide Level 25 21 21-32 MMOL/L Anion Gap 9 7 5-14 MMOL/L Blood Urea Nitrogen 14 7 7-18 MG/DL Creatinine 0.63 0.57 L 0.60-1.30 MG/DL Estimat Glomerular Filtration Rate > 60 > 60 BUN/Creatinine Ratio 22 12 Glucose Level 98 116 H 70-105 MG/DL Calcium Level 8.7 8.2 L 8.5-10.1 MG/DL Corrected Calcium 9.1 8.8 8.5-10.1 MG/DL Total Bilirubin 0.6 0.6 0.1-1.0 MG/DL Aspartate Amino Transf (AST/SGOT) 11 11 5-34 U/L Alanine Aminotransferase (ALT/SGPT) 12 9 0-55 U/L Alkaline Phosphatase 45 43 40-136 U/L Troponin I < 0.30 <0.30 NG/ML Total Protein 5.7 L 5.2 L 6.4-8.2 GM/DL Albumin 3.5 3.2 3.2-4.5 GM/DL Urine Color YELLOW Urine Clarity CLEAR Urine pH 5 5-9 Urine Specific [place] 1.025 H 1.016-1.022 Urine Protein 2+ H NEGATIVE Urine Glucose (UA) NEGATIVE NEGATIVE Urine Ketones NEGATIVE NEGATIVE Urine Nitrite POSITIVE H NEGATIVE Urine Bilirubin 1+ H NEGATIVE Urine Urobilinogen 1 NORMAL MG/DL Urine Leukocyte Esterase 3+ H NEGATIVE Urine RBC (Auto) 3+ H NEGATIVE Urine RBC 0-2 /HPF Urine WBC 10-25 H /HPF Urine Squamous Epithelial Cells 5-10 /HPF Urine Crystals NONE /LPF Urine Bacteria LARGE H /HPF Urine Casts NONE /LPF Urine Mucus NEGATIVE /LPF Urine Culture Indicated YES Triglycerides Level 99 <150 MG/DL Cholesterol Level 145 < 200 MG/DL LDL Cholesterol Direct 99 1-129 MG/DL VLDL Cholesterol 20 5-40 MG/DL HDL Cholesterol 28 L 40-60 MG/DL Physical Exam Vital Signs Vital Signs - First Documented 05/25/18 13:07 Temp 97.3 Pulse 51 Resp 18 B/P (MAP) 126/64 (84) Pulse Ox 97 O2 Delivery Room Air Capillary Refill : Less Than 3 Seconds Height, Weight, BMI Height: 5'8.00" Weight: 143lbs. 12.8oz. 65.597328wy; BMI Method:Stated General Appearance: WD/WN, Other (Not responsive) HEENT: TMs Normal, Pharynx Normal Neck: Normal Inspection, Supple Respiratory: Chest Non Tender, Lungs Clear, Normal Breath Sounds Cardiovascular: No JVD, Bradycardia, Systolic Murmur Gastrointestinal: Normal Bowel Sounds, No Pulsatile Mass, Soft Back: Normal Inspection Extremity: Normal Inspection, Non Tender Neurologic/Psychiatric: Other (Not responsive to verbal or tactile stimuli, not following commands) Skin: Normal Color, Warm/Dry Lymphatic: No Adenopathy A/P-Cardiology Admission Diagnosis Acute change in mental status Alzheimer dementia Sinus bradycardia Hypertension Assessment/Plan Acute change in mental status, probably due to UTI in addition to dementia. Patient is unresponsive at this time, monitor and managed. Alzheimer dementia, worsening due to underlying condition. Urinary tract infection receiving antibiotics. Sinus bradycardia, blood pressure is stable. EKG showed sinus rhythm with normal axis. No acute abnormality. Not receiving beta blockers or calcium Blockers. Continue to monitor at this time, I recommend conservative management Hypertension, I will continue monitoring blood pressure without initiating any new medication Overall poor prognosis, possible Comfort Care. Clinical Quality Measures DVT/VTE Risk/Contraindication: Risk Factor Score Per Nursin RFS Level Per Nursing on Admit: 4+=Very High Stroke: Date of last known well: May 25, 2018 EMILY THAYER MD May 26, 2018 11:26
[2018-05-26 12:00] VITALS: BP 143/69
[2018-05-26 16:19] VITALS: BP 146/67
[2018-05-26] MEDS: ENOXAPARIN 40 MG/0.4 ML (LOVENOX) SYR SC SCH (18:44)
[2018-05-26 20:50] VITALS: BP 136/71
[2018-05-26 23:42] VITALS: BP 153/72
[2018-05-27] MEDS: D5 1/2 NS W/KCL 20 MEQ/L 1,000 ML IV SCH ×2 (07:08→09:28)
--- NOTE | 2018-05-27 07:54 | Progress Note (SOAP) ---
Subjective Time Seen by a Provider: 07:50 Subjective/Events-last exam Patient less obtunded. Patient responds to pain maneuvers. Patient has a rise closed. Urine culture preliminary report Escherichia coli. Patient not awake enough to feed will have speech therapy evaluate Objective Exam Vital Signs Date Time Temp Pulse Resp B/P (MAP) Pulse Ox O2 Delivery O2 Flow Rate FiO2 05/27/18 07:00 45 05/27/18 01:00 55 05/26/18 23:42 99.3 52 18 153/72 (99) 95 Room Air 05/26/18 20:50 98.9 60 20 136/71 (92) 97 Room Air 05/26/18 20:00 Room Air 05/26/18 19:01 53 05/26/18 16:19 98.3 52 16 146/67 (93) 96 Room Air 05/26/18 13:53 51 05/26/18 12:00 98.0 66 18 143/69 (93) 96 Room Air 05/26/18 09:06 18 05/26/18 08:45 98 Room Air I & O 05/27/18 07:00 Intake Total 50 ml Output Total 2200 ml Balance -2150 ml Capillary Refill : Less Than 3 Seconds General Appearance: No Apparent Distress, WD/WN HEENT: Normal ENT Inspection Neck: Normal Inspection Respiratory: No Accessory Muscle Use, No Respiratory Distress Cardiovascular: Bradycardia, Systolic Murmur Gastrointestinal: non tender, soft Results Lab Laboratory Tests 05/26/18 10:59: Glucometer 95 Microbiology 05/25/18 Urine Culture - Preliminary, Resulted Escherichia coli Assessment/Plan Assessment/Plan Assess & Plan/Chief Complaint Alzheimer's. UTI. Nonresponsive. Bradycardia. To get social services designee and cardiology involved. . 05/27/18. UTI. Nonresponsive. Patient responds to pain stimuli. Patient lying in bed with eyes closed. Daughter to speak to palliative care today area Urine culture preliminary report Escherichia coli Clinical Quality Measures Admission Status Admission Dx Acute mental status change. UTI. Alzheimer's. DVT/VTE Risk/Contraindication: Risk Factor Score Per Nursin RFS Level Per Nursing on Admit: 4+=Very High Stroke: Date of last known well: May 25, 2018 GHADA TAVERAS DO May 27, 2018 07:54
[2018-05-27 08:00] VITALS: BP 153/70
[2018-05-27] MEDS ORDERED: POTASSIUM CL 10MEQ/50ML IVPB 50 ML IV NR (08:02)
[2018-05-27] MEDS ORDERED: ACET325T38 PO (09:03)
[2018-05-27] MEDS ORDERED: MAGN400O7 PO (09:03)
[2018-05-27] MEDS ORDERED: RISP0.5T21 PO (09:03)
[2018-05-27] MEDS ORDERED: TR1C15 TP (09:03)
[2018-05-27] MEDS ORDERED: BISA10SU58 RC (09:03)
[2018-05-27] MEDS ORDERED: MELA3TAB PO (09:03)
[2018-05-27] MEDS ORDERED: CYAN10006 PO (09:03)
[2018-05-27] MEDS: cefTRIAXone 1 GM/NS 50 ML IVPB IV SCH ×2 (09:22)
--- NOTE | 2018-05-27 14:34 | Speech Therapy Progress Note ---
Therapy Progress Note Attempted to see pt x 3. Pt was not alert of any of those times. Unable to arouse pt with verbal and tactile cues. Will continue to follow to determine when it is appropriate to attempt PO trials. ROBERT FELDMAN May 27, 2018 14:33
[2018-05-27 15:22] LABS: BILIRUBIN,URINE NEGATIVE (NEGATIVE); CLARITY,URINE CLEAR; COLOR,URINE YELLOW; GLUCOSE, URINE (UA) NEGATIVE (NEGATIVE); KETONES,URINE NEGATIVE (NEGATIVE); LEUKOCYTE ESTERASE ,URINE 2+ (NEGATIVE); NITRITE,URINE NEGATIVE (NEGATIVE); PH,URINE 6.5 (5-9); PROTEIN,URINE NEGATIVE (NEGATIVE); UROBILINOGEN,URINE NORMAL (NORMAL)
[2018-05-27 15:30] LABS: BACTERIA,URINE FEW /HPF; RBC,URINE RARE /HPF
--- NOTE | 2018-05-27 16:03 | Cardiology Progress Note ---
Subjective Date Seen by Provider: May 27, 2018 Time Seen by Provider: 16:01 Subjective/Events-last exam patient is laying down in bed, not responsive, not following any commands Review of Systems General: Other (Unable to provide review of systems) Objective-Cardiology Exam Last Set of Vital Signs Vital Signs 05/27/18 13:00 Pulse 41 Capillary Refill : Less Than 3 Seconds I&O Intake and Output 05/27/18 00:00 Intake Total 1050 ml Output Total 1700 ml Balance -650 ml Intake Oral 0 ml IV Total 1050 ml Output Urine Total 1700 ml General: Other (Not responsive or opening her eyes) HEENT: Atraumatic Neck: No JVD Lungs: Clear to Auscultation Heart: Regular Rate, Normal S1, Normal S2 Abdomen: Normal Bowel Sounds Neuro: Other (And not responsive or following commands) Psych/Mental Status: Other (Not responsive) A/P-Cardiology Admission Diagnosis Acute change in mental status Alzheimer dementia Sinus bradycardia Hypertension Assessment/Plan Status post Acute change in mental status, probably due to UTI in addition to dementia. Patient is still unresponsive, not following any commands Alzheimer dementia, worsening due to underlying condition. Urinary tract infection receiving antibiotics. Sinus bradycardia, blood pressure is stable. EKG showed sinus rhythm with normal axis. No acute abnormality. Not receiving beta blockers or calcium Blockers. Continue to monitor at this time, I recommend conservative management Hypertension, I will continue monitoring blood pressure without initiating any new medication Overall poor prognosis, possible Comfort Care. Clinical Quality Measures DVT/VTE Risk/Contraindication: Risk Factor Score Per Nursin RFS Level Per Nursing on Admit: 4+=Very High Stroke: Date of last known well: May 25, 2018 EMILY THAYER MD May 27, 2018 16:02
[2018-05-27 16:33] VITALS: BP 144/67
[2018-05-27] MEDS: ENOXAPARIN 40 MG/0.4 ML (LOVENOX) SYR SC SCH (21:00)
[2018-05-28 00:06] VITALS: BP 155/60
[2018-05-28] MEDS: D5 1/2 NS W/KCL 20 MEQ/L 1,000 ML IV SCH ×2 (01:36→20:01)
--- NOTE | 2018-05-28 07:26 | Progress Note (SOAP) ---
Subjective Time Seen by a Provider: 07:24 Subjective/Events-last exam Patient is awake today. Patient knows her name. To have speech evaluation for swallowing function. UA looks better nitrate negative. UTI sensitive to Rocephin. Patient has improved Objective Exam Vital Signs Date Time Temp Pulse Resp B/P (MAP) Pulse Ox O2 Delivery O2 Flow Rate FiO2 05/28/18 01:00 51 05/28/18 00:06 98.0 55 18 155/60 (91) 93 Room Air 05/27/18 20:30 Room Air 05/27/18 19:00 53 05/27/18 16:33 98.9 53 20 144/67 (92) 97 Room Air 05/27/18 13:00 41 05/27/18 08:00 99.1 58 20 153/70 (97) 95 Room Air 05/27/18 08:00 98 Room Air I & O 05/28/18 07:00 Intake Total 50 ml Output Total 2065 ml Balance -2015 ml Capillary Refill : Less Than 3 Seconds General Appearance: No Apparent Distress, WD/WN HEENT: Normal ENT Inspection Neck: Normal Inspection Respiratory: No Accessory Muscle Use, No Respiratory Distress Cardiovascular: Regular Rate, Rhythm, No Murmur Gastrointestinal: non tender, soft Results Lab Laboratory Tests 05/27/18 13:45: Urine Color YELLOW, Urine Clarity CLEAR, Urine pH 6.5, Urine Specific [place] 1.010L, Urine Protein NEGATIVE, Urine Glucose (UA) NEGATIVE, Urine Ketones NEGATIVE, Urine Nitrite NEGATIVE, Urine Bilirubin NEGATIVE, Urine Urobilinogen NORMAL, Urine Leukocyte Esterase 2+H, Urine RBC (Auto) NEGATIVE, Urine RBC RARE , Urine WBC 10-25H, Urine Crystals NONE, Urine Bacteria FEWH, Urine Casts NONE, Urine Mucus SMALLH, Urine Culture Indicated YES Microbiology 05/25/18 Urine Culture - Final, Complete Escherichia coli Assessment/Plan Assessment/Plan Assess & Plan/Chief Complaint Alzheimer's. UTI. Nonresponsive. Bradycardia. To get social media developer and cardiology involved. . 05/27/18. UTI. Nonresponsive. Patient responds to pain stimuli. Patient lying in bed with eyes closed. Daughter to speak to palliative care today area Urine culture preliminary report Escherichia coli. . 05/28/18 UTI. Culture Escherichia coli sensitive to Rocephin. Patient awake this morning. Patient does know her name. Speech therapy to evaluate for swallowing function. Clinical Quality Measures Admission Status Admission Dx Acute mental status change. UTI. Alzheimer's. DVT/VTE Risk/Contraindication: Risk Factor Score Per Nursin RFS Level Per Nursing on Admit: 4+=Very High Stroke: Date of last known well: May 25, 2018 GHADA TAVERAS DO May 28, 2018 07:26
[2018-05-28 08:00] VITALS: BP 189/80
[2018-05-28 09:10] LABS: MEAN PLATELET VOLUME 10.2 FL (7.4-10.4); RED BLOOD COUNT 3.99 10^6/uL (4.35-5.85); RED CELL DISTRIBUTION WIDTH 13.6 % (10.0-14.5); WHITE BLOOD COUNT 6.2 10^3/uL (4.3-11.0)
--- NOTE | 2018-05-28 09:25 | Cardiology Progress Note ---
Subjective Date Seen by Provider: May 28, 2018 Time Seen by Provider: 09:24 Subjective/Events-last exam Patient is more awake today, not following commands, not answering appropriately. Otherwise no change in her status Review of Systems General: Other (Unable to provide review of systems) Objective-Cardiology Exam Last Set of Vital Signs Vital Signs 05/28/18 08:00 Temp 98.1 Pulse 48 Resp 18 B/P (MAP) 189/80 (116) Pulse Ox 97 O2 Delivery Room Air Capillary Refill : Less Than 3 Seconds I&O Intake and Output 05/28/18 00:00 Intake Total 50 ml Output Total 2265 ml Balance -2215 ml Intake Oral 0 ml IV Total 50 ml Output Urine Total 2265 ml General: Other HEENT: Atraumatic Neck: No JVD Lungs: Clear to Auscultation Heart: Regular Rate, Normal S1, Normal S2 Abdomen: Normal Bowel Sounds Neuro: Other Psych/Mental Status: Other Results Lab Laboratory Tests 05/28/18 09:04 A/P-Cardiology Admission Diagnosis Acute change in mental status Alzheimer dementia Sinus bradycardia Hypertension Assessment/Plan Status post Acute change in mental status, probably due to UTI in addition to dementia, improving slowly, opening her eyes today, not following commands. Managed by primary care team Alzheimer dementia, worsening due to underlying condition. Urinary tract infection receiving antibiotics. Sinus bradycardia, blood pressure is stable. EKG showed sinus rhythm with normal axis. No acute abnormality. Not receiving beta blockers or calcium Blockers. Continue to monitor at this time, I recommend conservative management Hypertension, I will continue monitoring blood pressure without initiating any new medication Overall poor prognosis, possible Comfort Care. Clinical Quality Measures DVT/VTE Risk/Contraindication: Risk Factor Score Per Nursin RFS Level Per Nursing on Admit: 4+=Very High Stroke: Date of last known well: May 25, 2018 EMILY THAYER MD May 28, 2018 09:24
[2018-05-28 09:29] LABS: BUN/CREATININE RATIO 7; CALCIUM 8.7 MG/DL (8.5-10.1); CARBON DIOXIDE 24 MMOL/L (21-32); CHLORIDE 113 MMOL/L (98-107); CREATININE SERUM 0.61 MG/DL (0.60-1.30); GFR ESTIMATED > 60; GLUCOSE 100 MG/DL (70-105); SODIUM 144 MMOL/L (135-145)
[2018-05-28] MEDS: cefTRIAXone 1 GM/NS 50 ML IVPB IV SCH ×2 (09:32)
--- NOTE | 2018-05-28 13:25 | ST Dysphagia Evaluation ---
Speech Evaluation-General Therapy Diagnosis Therapy Diagnosis: Dysphagia Precautions Precautions/Isolations: Fall Prevention, Standard Precautions Referral Referring Physician: Dr. Steele Reason for Referral: Evaluation/Treatment Speech PLF/Current-Dysphagia Prior Level of Function Lived in senior care. Subjective Pt in bed. Semi-alert. Used a cold rag to face to make pt more alert to be able to participate in Bedside Swallow Study. Cognitive Status Patient Orientation: Person Oral Motor Skills Dentition: Natural Ability to Follow Directions: Fair Unable to assess. Pt is essentially non-vocal but will utter a word now and then. Face Facial Symmetry: Symmetrical Oral-Facial Assessment Oral-Facial Dentition: Normal Dysphagia Evaluation Consistencies Presented: Thin Liquid, Pureed appeared WFL for consistencies presented. appeared WFL. Funct. Velo/Pharyngeal Symptom: Cough After Swallow (due to swallow dyscoordination. ) Dietary Recommendations: Pureed Liquid Recommendations: Thin (by spoon) Swallowing Precautions: Liquids from Spoon Dysphagia Evaluation Summary Pt appears to tolerate recommended diet with no s/s of aspiration. Barriers to Learning Alertness Speech-Plan Patient/Family Goals Patient/Family Goals: pt unable to state goals due to decreased mental status Treatment Plan Speech Therapy Treatment Plan: Discontinue ST Skilled ST not indicated as pt appears to tolerate recommended diet. Consult speech therapy when considering diet upgrade. Frequency: Modified Program (IRF) (0) Estimated Hrs Per Day: Other (0) Rehab Potential: Fair Time Speech Therapy Time In: 12:50 Speech Therapy Time Out: 13:15 Total Billed Time: 25 Billed Treatment Time 1HENRY ROBERT Hopkins May 28, 2018 13:25
[2018-05-28 16:00] VITALS: BP 149/73
[2018-05-28] MEDS: ENOXAPARIN 40 MG/0.4 ML (LOVENOX) SYR SC SCH (19:48)
[2018-05-29] VITALS: BP 137/63
[2018-05-29] MEDS: ceFAZolin 1 GM/NS 50 ML IVPB IV SCH ×6 (05:21→22:06)
[2018-05-29 05:36] LABS: HEMOGLOBIN 12.1 G/DL (11.5-16.0); MEAN PLATELET VOLUME 11.3 FL (7.4-10.4); RED BLOOD COUNT 3.88 10^6/uL (4.35-5.85); RED CELL DISTRIBUTION WIDTH 13.4 % (10.0-14.5); WHITE BLOOD COUNT 4.8 10^3/uL (4.3-11.0)
[2018-05-29 05:53] LABS: BUN/CREATININE RATIO 8; CALCIUM 8.7 MG/DL (8.5-10.1); CARBON DIOXIDE 23 MMOL/L (21-32); CHLORIDE 112 MMOL/L (98-107); CREATININE SERUM 0.59 MG/DL (0.60-1.30); GFR ESTIMATED > 60; GLUCOSE 98 MG/DL (70-105); POTASSIUM 3.8 MMOL/L (3.6-5.0); SODIUM 144 MMOL/L (135-145)
[2018-05-29 08:00] VITALS: BP 139/67
[2018-05-29] MEDS: D5 1/2 NS W/KCL 20 MEQ/L 1,000 ML IV SCH (10:50)
--- NOTE | 2018-05-29 10:51 | Progress Note-Hospitalist ---
Subjective HPI/CC On Admission Date Seen by Provider: May 29, 2018 Time Seen by Provider: 10:15 Subjective/Events-last exam Patient opens eyes to verbal stimulation but does not respond she does orient to verbal stimulation by looking at the examiner while I was asking questions but again no response. She does not appear to be in acute distress. Staff reports no problems. Objective Exam Vital Signs Vital Signs Date Time Temp Pulse Resp B/P (MAP) Pulse Ox O2 Delivery O2 Flow Rate FiO2 05/29/18 08:00 97.0 51 16 139/67 (91) 96 Room Air Capillary Refill : Less Than 3 Seconds General Appearance: No Apparent Distress Respiratory: Chest Non Tender, Lungs Clear, Normal Breath Sounds, No Accessory Muscle Use, No Respiratory Distress Cardiovascular: Regular Rate, Rhythm, No Edema, No Gallop, No JVD, Bradycardia Gastrointestinal: Normal Bowel Sounds, No Organomegaly, No Pulsatile Mass, Non Tender, Soft Results/Procedures Lab Laboratory Tests 05/29/18 04:55 Patient resulted labs reviewed. Assessment/Plan Assessment and Plan Assess & Plan/Chief Complaint 1. Reported altered mental status over this patient's baseline significant dementia likely due to urinary tract infection continue antibiotics. 2. Sinus bradycardia no reported history of presyncope or syncope. Donepezil is a relative contraindication as it may significantly aggravate bradycardia so I would not advise resumption of this medicine on discharge as risks outweigh its minimal benefit. Clinical Quality Measures DVT/VTE Risk/Contraindication: Risk Factor Score Per Nursin RFS Level Per Nursing on Admit: 4+=Very High Stroke: Date of last known well: May 25, 2018 RICKY JENKINS MD May 29, 2018 10:51
[2018-05-29 16:46] VITALS: BP 168/77
[2018-05-29] MEDS: ENOXAPARIN 40 MG/0.4 ML (LOVENOX) SYR SC SCH (18:18)
[2018-05-30] VITALS: BP 136/70
[2018-05-30] MEDS: ceFAZolin 1 GM/NS 50 ML IVPB IV SCH ×6 (05:11→21:38)
[2018-05-30] MEDS: D5 1/2 NS W/KCL 20 MEQ/L 1,000 ML IV SCH ×2 (05:16→21:12)
[2018-05-30 08:00] VITALS: BP 123/90
--- NOTE | 2018-05-30 10:52 | Progress Note-Hospitalist ---
Subjective HPI/CC On Admission Date Seen by Provider: May 30, 2018 Time Seen by Provider: 09:45 Patient's eyes open and she does track to verbal stimulation but is noncommunicative. Aide states that she's not having any difficulty with swallowing there is no coughing or choking tolerating liquids and solids with improvement in appetite. There has been no significant agitation reported. Objective Exam Vital Signs Vital Signs Date Time Temp Pulse Resp B/P (MAP) Pulse Ox O2 Delivery O2 Flow Rate FiO2 05/30/18 08:00 99.7 65 18 123/90 (101) 95 Room Air Capillary Refill : Less Than 3 Seconds General Appearance: No Apparent Distress Respiratory: Chest Non Tender, Lungs Clear, Normal Breath Sounds, No Accessory Muscle Use, No Respiratory Distress Cardiovascular: Regular Rate, Rhythm, No Edema, No Gallop, No JVD, Normal Peripheral Pulses, Bradycardia, Systolic Murmur (2/6 unchanged) Results/Procedures Lab Patient resulted labs reviewed. Assessment/Plan Assessment and Plan Assess & Plan/Chief Complaint 1. Reported altered mental status over this patient's baseline significant dementia likely due to urinary tract infection continue antibiotics. 2. Sinus bradycardia no reported history of presyncope or syncope. Donepezil is a relative contraindication as it may significantly aggravate bradycardia so I would not advise resumption of this medicine on discharge as risks outweigh its minimal benefit. 3. Improvement in by mouth intake will DC IV fluids consider discharge tomorrow. Clinical Quality Measures DVT/VTE Risk/Contraindication: Risk Factor Score Per Nursin RFS Level Per Nursing on Admit: 4+=Very High Stroke: Date of last known well: May 25, 2018 RICKY JENKINS MD May 30, 2018 10:52
[2018-05-30 16:22] VITALS: BP 113/62
[2018-05-30] MEDS ORDERED: ACETAMINOPHEN 500 MG TAB (TYLENOL) PO PRN (16:45)
[2018-05-30] MEDS: ENOXAPARIN 40 MG/0.4 ML (LOVENOX) SYR SC SCH (18:10)
[2018-05-31 00:10] VITALS: BP 119/70
[2018-05-31] MEDS: ceFAZolin 1 GM/NS 50 ML IVPB IV SCH ×4 (05:04→14:20)
[2018-05-31 08:00] VITALS: BP 106/51
--- NOTE | 2018-05-31 08:01 | Progress Note (SOAP) ---
Subjective Time Seen by a Provider: 07:58 Subjective/Events-last exam Patient this morning is resting comfortably. Patient keeping arise close. Patient does respond to minimal pain stimuli. Nurse to call me at 11 a.m. how patient is doing. Would like to discharge today Patient did take fluids and eat yesterday. Patient not to be on Aricept. Objective Exam Vital Signs Date Time Temp Pulse Resp B/P (MAP) Pulse Ox O2 Delivery O2 Flow Rate FiO2 05/31/18 00:10 98.5 94 17 119/70 (86) 93 Room Air 05/30/18 19:56 Room Air 05/30/18 16:44 100.8 05/30/18 16:22 100.8 90 16 113/62 (79) 94 Room Air 05/30/18 08:00 99.7 65 18 123/90 (101) 95 Room Air 05/30/18 08:00 92 Room Air I & O 05/31/18 07:00 Intake Total 1190 ml Output Total 1175 ml Balance 15 ml Capillary Refill : Less Than 3 Seconds General Appearance: No Apparent Distress, WD/WN Respiratory: Lungs Clear, No Accessory Muscle Use, No Respiratory Distress Cardiovascular: Regular Rate, Rhythm Gastrointestinal: non tender, soft Results Lab Microbiology 05/27/18 Urine Culture - Final, Complete NO GROWTH Assessment/Plan Assessment/Plan Assess & Plan/Chief Complaint Alzheimer's. UTI. Nonresponsive. Bradycardia. To get social service manager and cardiology involved. . 05/27/18. UTI. Nonresponsive. Patient responds to pain stimuli. Patient lying in bed with eyes closed. Daughter to speak to palliative care today area Urine culture preliminary report Escherichia coli. . 05/28/18 UTI. Culture Escherichia coli sensitive to Rocephin. Patient awake this morning. Patient does know her name. Speech therapy to evaluate for swallowing function.. . 05/31/18. UTI. Patient resting comfortably this a.m. Patient's eyes closed. Nurse to call me at 11 a.m. Clinical Quality Measures Admission Status Admission Dx Acute mental status change. UTI. Alzheimer's. DVT/VTE Risk/Contraindication: Risk Factor Score Per Nursin RFS Level Per Nursing on Admit: 4+=Very High Stroke: Date of last known well: May 25, 2018 GHADA TAVERAS DO May 31, 2018 08:01
--- NOTE | 2018-05-31 08:15 | Cardiology Progress Note ---
Subjective Date Seen by Provider: May 31, 2018 Time Seen by Provider: 08:13 Subjective/Events-last exam Patient is laying down in bed, not opening her eyes, not following commands. No improvement Review of Systems General: Other (Unable to provide review of systems) Objective-Cardiology Exam Last Set of Vital Signs Vital Signs 05/31/18 00:10 Temp 98.5 Pulse 94 Resp 17 B/P (MAP) 119/70 (86) Pulse Ox 93 O2 Delivery Room Air Capillary Refill : Less Than 3 Seconds I&O Intake and Output 05/31/18 00:00 Intake Total 1190 ml Output Total 825 ml Balance 365 ml Intake Oral 840 ml IV Total 350 ml Output Urine Total 825 ml General: Other (Not opening her eyes or following commands) HEENT: Atraumatic Neck: No JVD Lungs: Clear to Auscultation Heart: Regular Rate, Normal S1, Normal S2 Abdomen: Normal Bowel Sounds Neuro: Other (Not responding to verbal stimuli) A/P-Cardiology Admission Diagnosis Acute change in mental status Alzheimer dementia Sinus bradycardia Hypertension Assessment/Plan Status post Acute change in mental status, probably due to UTI in addition to dementia, had some improvement last week, back to her unresponsive state, discussed with Dr. Steele and recommended proceeding with comfort care Alzheimer dementia, worsening due to underlying condition. Urinary tract infection receiving antibiotics. Sinus bradycardia, blood pressure is stable. EKG showed sinus rhythm with normal axis. No acute abnormality. Not receiving beta blockers or calcium Blockers. Continue to monitor at this time, I recommend conservative management Hypertension, I will continue monitoring blood pressure without initiating any new medication Overall poor prognosis, possible Comfort Care. Clinical Quality Measures DVT/VTE Risk/Contraindication: Risk Factor Score Per Nursin RFS Level Per Nursing on Admit: 4+=Very High Stroke: Date of last known well: May 25, 2018 EMILY THAYER MD May 31, 2018 08:15
--- NOTE | 2018-05-31 10:21 | Physical Therapy Evaluation ---
PT Evaluation-General Medical Diagnosis Admission Date May 25, 2018 at 14:45 Medical Diagnosis: AMS/UTI Onset Date: May 25, 2018 Therapy Diagnosis Therapy Diagnosis: generalized weakness/debility Height/Weight Height (Feet): 5 Height (Inches): 8.00 Weight (Pounds): 143 Weight (Ounces): 12.8 Precautions Precautions/Isolations: Fall Prevention, Standard Precautions Weight Bear Status Right Lower Extremity: Right Full Weight Bearing Left Lower Extremity: Left Full Weight Bearing Referral Physician: Ivette Reason for Referral: Evaluation/Treatment Medical History Pertinent Medical History: CVA, Dementia Current History ER with neuro like symptoms/found less responsive at [place] Reviewed History: Yes Social History Home: Snf Prior/[facility] Prior Level of Function Functional [place] Measure 0=Not Assessed/NA 4=Minimal Assistance 1=Total Assistance 5=Supervision or Setup 2=Maximal Assistance 6=Modified [place] 3=Moderate Assistance 7=Complete [place] Bed Mobility: 4 Transfers (B,C,W/C) (FIM): 5 Gait: 5 PT Evaluation-Current Subjective Patient is non verbal and does not open her eyes. Pain Numeric Pain Scale: 0-No Pain Location: No Pain Reported Objective Patient Orientation: Non-Verbal/Aphasic Problem Solving: Poor ROM/Strength ROM Lower Extremities bilateral LE WFL Integumentary/Posture Integumentary 3+/5 grossly bilaterally Bowel Incontinence: Yes Bladder Incontinence: Yes Posture WFL Neuromuscular (Tone, Coordination, Reflexes) diminished due to dementia/weakness Sensory Vision: Unable to Assess Hearing: Unable to Assess Transfers Functional [place] Measure 0=Not Assessed/NA 4=Minimal Assistance 1=Total Assistance 5=Supervision or Setup 2=Maximal Assistance 6=Modified [place] 3=Moderate Assistance 7=Complete [place] Transfers (B, C, W/C) (FIM): 2 Scootin Rollin Supine to/from Sit: 2 Sit to/from Stand: 2 Patient was able to instinctive assist with sitting EOB after time. Performed sit to stand with max assist. Gait Mode of Locomotion: Both Anticipated Mode of Locomotion: Both Gait (FIM): 1 Distance (FIM): 1=up to 49 ft Distance: 10' Gait Level of Assist: 2 Gait Persons Needed: 1 Gait Assistive Device: None Comments/Gait Description with noted left lean/shuffle gait sequence Balance Sitting Static: Fair Sitting Dynamic: Fair Standing Static: Poor Standing Dynamic: Poor Assessment/Needs 82 y.o. female, is currently at maximum assist with all mobility and does demonstrate the ability to sit in w/c for transfers safely. SW notified. Patient will transfer to [facility] on this date. Rehab Potential: Poor PT Plan Treatment/Plan Treatment Plan: Discontinue PT, goals met Treatment Plan: Other Treatment Duration: May 31, 2018 Frequency: 1 time per week Estimated Hrs Per Day: .25 hour per day Patient and/or Family Agrees t: Yes Time/GCodes Time In: 940 Time Out: 951 Total Billed Treatment Time: 11 Total Billed Treatment 1 visit EVLowC 11 min G Codes Necessary: No CATHY BAILEY PT May 31, 2018 10:21
[2018-05-31 15:06] VITALS: BP 106/51
--- NOTE | 2018-06-01 07:23 | Discharge Summary ---
Diagnosis/Chief Complaint Date of Admission May 25, 2018 at 14:45 Date of Discharge May 31, 2018 at 15:02 Discharge Time: 07:21 Discharge Diagnosis Mental status. Nonresponsive. UTI due to Escherichia coli. Bradycardia due to Aricept. Thrombocytopenia. DO NOT RESUSCITATE. Reason Hospital Visit Patient is a resident of a senior living. Patient became unresponsive. Received a call from the nurse at the senior living stating that the patient's eyes were fixed and nonresponsive. Patient is a full code. Patient has Alzheimer's. Patient referred to the emergency room. Urine shows a bed UTI. Patient only responds to stimulation. Patient this evening does open her eyes but does not communicate. Discharge Summary Consultations Cardiology consult Discharge Physical Examination Allergies: Coded Allergies: No Known Drug Allergies (Unverified , 12/10/17) Vitals & I&Os Vital Signs Date Time Temp Pulse Resp B/P (MAP) Pulse Ox O2 Delivery O2 Flow Rate FiO2 05/31/18 15:06 69 16 106/51 92 Room Air 05/31/18 08:00 98.3 Hospital Course Patient in hospital did wake up. Patient did take foot. Patient discharge back to senior living Labs (last 24 hrs) Laboratory Tests 05/25/18 13:07: White Blood Count 5.3, Red Blood Count 3.84L, Hemoglobin 11.8, Hematocrit 35, Mean Corpuscular Volume 92, Mean Corpuscular Hemoglobin 31, Mean Corpuscular Hemoglobin Concent 34, Red Cell Distribution Width 13.6, Platelet Count 116L, Mean Platelet Volume 11.5H, Neutrophils (%) (Auto) 73, Lymphocytes (%) (Auto) 17 , Monocytes (%) (Auto) 8, Eosinophils (%) (Auto) 1, Basophils (%) (Auto) 0, Neutrophils # (Auto) 3.9, Lymphocytes # (Auto) 0.9L, Monocytes # (Auto) 0.4, Eosinophils # (Auto) 0.1, Basophils # (Auto) 0.0, Prothrombin Time 14.9H, INR Comment 1.2, Activated Partial Thromboplast Time 27, D-Dimer 9.97H, Sodium Level 148H, Potassium Level 3.5L, Chloride Level 114H, Carbon Dioxide Level 25, Anion Gap 9, Blood Urea Nitrogen 14, Creatinine 0.63, Estimat Glomerular Filtration Rate > 60, BUN/Creatinine Ratio 22, Glucose Level 98, Calcium Level 8.7, Corrected Calcium 9.1, Total Bilirubin 0.6, Aspartate Amino Transf (AST/ SGOT) 11, Alanine Aminotransferase (ALT/SGPT) 12, Alkaline Phosphatase 45, Troponin I < 0.30, Total Protein 5.7L, Albumin 3.5 05/25/18 13:54: Urine Color YELLOW, Urine Clarity CLEAR, Urine pH 5, Urine Specific [place] 1.025H, Urine Protein 2+H, Urine Glucose (UA) NEGATIVE, Urine Ketones NEGATIVE, Urine Nitrite POSITIVEH, Urine Bilirubin 1+H, Urine Urobilinogen 1, Urine Leukocyte Esterase 3+H, Urine RBC (Auto) 3+H, Urine RBC 0-2, Urine WBC 10-25H, Urine Squamous Epithelial Cells 5-10, Urine Crystals NONE, Urine Bacteria LARGEH , Urine Casts NONE, Urine Mucus NEGATIVE, Urine Culture Indicated YES 05/25/18 14:45: Lab Scanned Report Referred Lab Report 05/26/18 05:35: White Blood Count 5.7, Red Blood Count 3.71L, Hemoglobin 11.4L, Hematocrit 34L, Mean Corpuscular Volume 92, Mean Corpuscular Hemoglobin 31, Mean Corpuscular Hemoglobin Concent 34, Red Cell Distribution Width 13.8, Platelet Count 106L, Mean Platelet Volume 11.5H, Neutrophils (%) (Auto) 72, Lymphocytes (%) (Auto) 18 , Monocytes (%) (Auto) 8, Eosinophils (%) (Auto) 2, Basophils (%) (Auto) 0, Neutrophils # (Auto) 4.1, Lymphocytes # (Auto) 1.0, Monocytes # (Auto) 0.4, Eosinophils # (Auto) 0.1, Basophils # (Auto) 0.0, Sodium Level 143, Potassium Level 3.5L, Chloride Level 115H, Carbon Dioxide Level 21, Anion Gap 7, Blood Urea Nitrogen 7, Creatinine 0.57L, Estimat Glomerular Filtration Rate > 60, BUN/ Creatinine Ratio 12, Glucose Level 116H, Calcium Level 8.2L, Corrected Calcium 8.8, Total Bilirubin 0.6, Aspartate Amino Transf (AST/SGOT) 11, Alanine Aminotransferase (ALT/SGPT) 9, Alkaline Phosphatase 43, Total Protein 5.2L, Albumin 3.2, Triglycerides Level 99, Cholesterol Level 145, LDL Cholesterol Direct 99, VLDL Cholesterol 20, HDL Cholesterol 28L 05/26/18 10:59: Glucometer 95 05/27/18 13:45: Urine Color YELLOW, Urine Clarity CLEAR, Urine pH 6.5, Urine Specific [place] 1.010L, Urine Protein NEGATIVE, Urine Glucose (UA) NEGATIVE, Urine Ketones NEGATIVE, Urine Nitrite NEGATIVE, Urine Bilirubin NEGATIVE, Urine Urobilinogen NORMAL, Urine Leukocyte Esterase 2+H, Urine RBC (Auto) NEGATIVE, Urine RBC RARE , Urine WBC 10-25H, Urine Crystals NONE, Urine Bacteria FEWH, Urine Casts NONE, Urine Mucus SMALLH, Urine Culture Indicated YES 05/28/18 09:04: White Blood Count 6.2, Red Blood Count 3.99L, Hemoglobin 12.0, Hematocrit 36, Mean Corpuscular Volume 91, Mean Corpuscular Hemoglobin 30, Mean Corpuscular Hemoglobin Concent 33, Red Cell Distribution Width 13.6, Platelet Count 148, Mean Platelet Volume 10.2, Sodium Level 144, Potassium Level 4.0, Chloride Level 113H, Carbon Dioxide Level 24, Anion Gap 7, Blood Urea Nitrogen 4L, Creatinine 0.61, Estimat Glomerular Filtration Rate > 60, BUN/Creatinine Ratio 7 , Glucose Level 100, Calcium Level 8.7 05/29/18 04:55: White Blood Count 4.8, Red Blood Count 3.88L, Hemoglobin 12.1, Hematocrit 35, Mean Corpuscular Volume 90, Mean Corpuscular Hemoglobin 31, Mean Corpuscular Hemoglobin Concent 35, Red Cell Distribution Width 13.4, Platelet Count 145, Mean Platelet Volume 11.3H, Sodium Level 144, Potassium Level 3.8, Chloride Level 112H, Carbon Dioxide Level 23, Anion Gap 9, Blood Urea Nitrogen 5L, Creatinine 0.59L, Estimat Glomerular Filtration Rate > 60, BUN/Creatinine Ratio 8, Glucose Level 98, Calcium Level 8.7 Microbiology 05/27/18 Urine Culture - Final, Complete NO GROWTH Laboratory Tests 05/25/18 13:07 05/26/18 05:35 05/28/18 09:04 05/29/18 04:55 Pending Labs Microbiology Date/Time Source Procedure Growth Status 05/27/18 13:45 Urine Indwelling Cath (Retirement) Urine Culture - Final NO GROWTH Complete 05/25/18 13:54 Urine Straight Cath, In/Out Urine Culture - Final Escherichia coli Complete Laboratory Tests 05/25/18 13:07: White Blood Count 5.3, Red Blood Count 3.84, Hemoglobin 11.8, Hematocrit 35, Mean Corpuscular Volume 92, Mean Corpuscular Hemoglobin 31, Mean Corpuscular Hemoglobin Concent 34, Red Cell Distribution Width 13.6, Platelet Count 116, Mean Platelet Volume 11.5, Neutrophils (%) (Auto) 73, Lymphocytes (%) (Auto) 17 , Monocytes (%) (Auto) 8, Eosinophils (%) (Auto) 1, Basophils (%) (Auto) 0, Neutrophils # (Auto) 3.9, Lymphocytes # (Auto) 0.9, Monocytes # (Auto) 0.4, Eosinophils # (Auto) 0.1, Basophils # (Auto) 0.0, Prothrombin Time 14.9, INR Comment 1.2, Activated Partial Thromboplast Time 27, D-Dimer 9.97, Sodium Level 148, Potassium Level 3.5, Chloride Level 114, Carbon Dioxide Level 25, Anion Gap 9, Blood Urea Nitrogen 14, Creatinine 0.63, Estimat Glomerular Filtration Rate > 60, BUN/Creatinine Ratio 22, Glucose Level 98, Calcium Level 8.7, Corrected Calcium 9.1, Total Bilirubin 0.6, Aspartate Amino Transf (AST/SGOT) 11 , Alanine Aminotransferase (ALT/SGPT) 12, Alkaline Phosphatase 45, Troponin I < 0.30, Total Protein 5.7, Albumin 3.5 05/25/18 13:54: Urine Color YELLOW, Urine Clarity CLEAR, Urine pH 5, Urine Specific [place] 1.025, Urine Protein 2+, Urine Glucose (UA) NEGATIVE, Urine Ketones NEGATIVE, Urine Nitrite POSITIVE, Urine Bilirubin 1+, Urine Urobilinogen 1, Urine Leukocyte Esterase 3+, Urine RBC (Auto) 3+, Urine RBC 0-2, Urine WBC 10-25, Urine Squamous Epithelial Cells 5-10, Urine Crystals NONE, Urine Bacteria LARGE , Urine Casts NONE, Urine Mucus NEGATIVE, Urine Culture Indicated YES 05/25/18 14:45: Lab Scanned Report Referred Lab Report 05/26/18 05:35: White Blood Count 5.7, Red Blood Count 3.71, Hemoglobin 11.4, Hematocrit 34, Mean Corpuscular Volume 92, Mean Corpuscular Hemoglobin 31, Mean Corpuscular Hemoglobin Concent 34, Red Cell Distribution Width 13.8, Platelet Count 106, Mean Platelet Volume 11.5, Neutrophils (%) (Auto) 72, Lymphocytes (%) (Auto) 18 , Monocytes (%) (Auto) 8, Eosinophils (%) (Auto) 2, Basophils (%) (Auto) 0, Neutrophils # (Auto) 4.1, Lymphocytes # (Auto) 1.0, Monocytes # (Auto) 0.4, Eosinophils # (Auto) 0.1, Basophils # (Auto) 0.0, Sodium Level 143, Potassium Level 3.5, Chloride Level 115, Carbon Dioxide Level 21, Anion Gap 7, Blood Urea Nitrogen 7, Creatinine 0.57, Estimat Glomerular Filtration Rate > 60, BUN/ Creatinine Ratio 12, Glucose Level 116, Calcium Level 8.2, Corrected Calcium 8.8 , Total Bilirubin 0.6, Aspartate Amino Transf (AST/SGOT) 11, Alanine Aminotransferase (ALT/SGPT) 9, Alkaline Phosphatase 43, Total Protein 5.2, Albumin 3.2, Triglycerides Level 99, Cholesterol Level 145, LDL Cholesterol Direct 99, VLDL Cholesterol 20, HDL Cholesterol 28 05/26/18 10:59: Glucometer 95 05/27/18 13:45: Urine Color YELLOW, Urine Clarity CLEAR, Urine pH 6.5, Urine Specific [place] 1.010, Urine Protein NEGATIVE, Urine Glucose (UA) NEGATIVE, Urine Ketones NEGATIVE, Urine Nitrite NEGATIVE, Urine Bilirubin NEGATIVE, Urine Urobilinogen NORMAL, Urine Leukocyte Esterase 2+, Urine RBC (Auto) NEGATIVE, Urine RBC RARE, Urine WBC 10-25, Urine Crystals NONE, Urine Bacteria FEW, Urine Casts NONE, Urine Mucus SMALL, Urine Culture Indicated YES 05/28/18 09:04: White Blood Count 6.2, Red Blood Count 3.99, Hemoglobin 12.0, Hematocrit 36, Mean Corpuscular Volume 91, Mean Corpuscular Hemoglobin 30, Mean Corpuscular Hemoglobin Concent 33, Red Cell Distribution Width 13.6, Platelet Count 148, Mean Platelet Volume 10.2, Sodium Level 144, Potassium Level 4.0, Chloride Level 113, Carbon Dioxide Level 24, Anion Gap 7, Blood Urea Nitrogen 4, Creatinine 0.61, Estimat Glomerular Filtration Rate > 60, BUN/Creatinine Ratio 7 , Glucose Level 100, Calcium Level 8.7 05/29/18 04:55: White Blood Count 4.8, Red Blood Count 3.88, Hemoglobin 12.1, Hematocrit 35, Mean Corpuscular Volume 90, Mean Corpuscular Hemoglobin 31, Mean Corpuscular Hemoglobin Concent 35, Red Cell Distribution Width 13.4, Platelet Count 145, Mean Platelet Volume 11.3, Sodium Level 144, Potassium Level 3.8, Chloride Level 112, Carbon Dioxide Level 23, Anion Gap 9, Blood Urea Nitrogen 5, Creatinine 0.59, Estimat Glomerular Filtration Rate > 60, BUN/Creatinine Ratio 8 , Glucose Level 98, Calcium Level 8.7 Radiology Reviewed CAT scan of the head negative. CTA negative. Chest x-ray no abnormalities Discharge Home Medications: Active Scripts Active Reported Tylenol (Acetaminophen) 325 Mg Tablet 650 Mg PO Q4H PRN Milk of Magnesia (Magnesium Hydroxide) 400 Mg/5 Ml Oral.susp 30 Mg PO DAILY PRN Dulcolax (Bisacodyl) 10 Mg Supp.rect 10 Mg RC DAILY PRN Lumigan (Bimatoprost) 2.5 Ml Drops 1 Drop OD HS Instructions to patient/family Please see electronic discharge instructions given to patient. Clinical Quality Measures DVT/VTE Risk/Contraindication: Risk Factor Score Per Nursin RFS Level Per Nursing on Admit: 4+=Very High Stroke: Date of last known well: May 25, 2018 GHADA TAVERAS DO Jun 01, 2018 07:23
== END 2018-05-31 15:02 | DRG 690 ==
LOC: EDUNIT# 13:07 → ER 13:09 → 4TH 14:45
PROVIDERS: ADMIT Family Medicine; ATTEND Family Medicine
DX: N39.0 Urinary tract infection, site not specified (principal); R41.82 Altered mental status, unspecified; B96.20 Unspecified Escherichia coli [E. coli] as the cause of diseases classified elsewhere; F02.80 Dementia in other diseases classified elsewhere, unspecified severity, without behavioral disturbance, psychotic disturbance, mood disturbance, and anxiety; G30.9 Alzheimer's disease, unspecified; I10 Essential (primary) hypertension; K59.09 Other constipation; Z66 Do not resuscitate; F32.9 Major depressive disorder, single episode, unspecified; D69.6 Thrombocytopenia, unspecified; R00.1 Bradycardia, unspecified; T50.995A Adverse effect of other drugs, medicaments and biological substances, initial encounter; Z87.891 Personal history of nicotine dependence; Z86.73 Personal history of transient ischemic attack (TIA), and cerebral infarction without residual deficits; R29.721 NIHSS score 21
CPT/HCPCS: 36415; 51702; 70450; 70496; 70498; 71045; 80048; 80053; 80061; 81000; 82962; 84484; 85025; 85027; 85379; 85610; 85730; 87077; 87088; 87186; 93005; 93041; 96365

== ENCOUNTER 2018-06-20 18:25 | Emergency (ER) | payer MEDICARE, MEDICAID ==
[~2018-06-20] VITALS: Ht 170.2 cm; Wt 77.1 kg
[~2018-06-20 18:25] MED LIST changes: +ACET325T38 PO; +BISA10SU58 RC; +CYAN10006 PO; +CYAN1TAB26 PO; +DOCU-143 PO; +DONE10TA12 PO; +FERR325T18 PO; +MAGN400O7 PO; +MELA3TAB PO; +RISP0.5T21 PO; +TR1C15 TP
[2018-06-20] MEDS ORDERED: KETOROLAC 30 MG/ML VIAL ONE (18:26)
[2018-06-20] MEDS ORDERED: KETOROLAC 30 MG/ML VIAL IM ONE (18:30)
--- NOTE | 2018-06-20 18:40 | ED Fall/Injury ---
General Stated Complaint: FELL FOUND ON FLOOR Source: patient, EMS Exam Limitations: clinical condition (nonverbal at baseline dementia) History of Present Illness Date Seen by Provider: Jun 20, 2018 Time Seen by Provider: 18:25 Initial Comments Patient presents to ER by EMS with chief complaint she was at [facility] where she was found in the hallway on the ground. Unwitnessed fall. She has abrasion to her right inferior lateral knee. It was dressed by nursing staff and an abrasion on the right hip with pain on manipulation. She is nonverbal at baseline on hospice. She did not receive anything for pain from assisted staff or EMS. She's had no known complaints fevers chills normal vital signs. She is on hospice for accommodation of end- stage Alzheimer's and history of brain bleed Allergies and Home Medications Allergies Coded Allergies: No Known Drug Allergies (Unverified , 12/10/17) Home Medications Acetaminophen 325 Mg Tablet, 650 MG PO Q4H PRN for PAIN-MILD OR TEMPATURE, ( Reported) Bimatoprost 2.5 Ml Drops, 1 DROP OD HS, (Reported) Bisacodyl 10 Mg Supp.rect, 10 MG RC DAILY PRN for CONSTIPATION-4TH LINE, ( Reported) Magnesium Hydroxide 400 Mg/5 Ml Oral.susp, 30 MG PO DAILY PRN for CONSTIPATION- 7TH LINE, (Reported) Patient Home Medication List Home Medication List Reviewed: Yes Review of Systems Review of Systems Constitutional: see HPI (unable to give any meaningful review of systems.) Past [id number] Hx Patient Social History Alcohol Use: Denies Use Recreational Drug Use: No Smoking Status: Never a Smoker Recent Foreign Travel: No Contact w/Someone Who Travel: No Recent Hopitalizations: Yes Seasonal Allergies Seasonal Allergies: No Past Medical History Surgeries: No (unknown) Respiratory: No Cardiac: No Neurological: Yes (Fall 1 month ago with small Subdural Hemorrhage. ) Dementia, Stroke Genitourinary: Yes UTI-Chronic Gastrointestinal: Yes Chronic Constipation Musculoskeletal: Yes (Muscle weakness) Endocrine: No HEENT: Yes Glaucoma Cancer: No Psychosocial: Yes Depression Integumentary: No Blood Disorders: Yes (Anemia; Thrombocytopenia) Adverse Reaction/Blood Tranf: No Family Medical History No Pertinent Family Hx Physical Exam Vital Signs Vital Signs - First Documented 06/20/18 18:25 Temp 98.4 Pulse 66 Resp 18 B/P (MAP) 148/88 (108) Pulse Ox 97 Capillary Refill : Height, Weight, BMI Height: 5'8.00" Weight: 143lbs. 12.8oz. 65.472942gz; BMI Method:Stated General Appearance: WD/WN, no apparent distress HEENT: PERRL/EOMI, normal ENT inspection, pharynx normal Neck: non-tender, full range of motion, normal inspection Cardiovascular: normal peripheral pulses, regular rate, rhythm Respiratory: chest non-tender, lungs clear, normal breath sounds, no respiratory distress, no accessory muscle use Gastrointestinal: non tender, soft Extremities: no pedal edema, normal capillary refill, other (minor superficial abrasion on the right inferior lateral knee without any swelling or tenderness to palpation or manipulation. She has some contractures throughout her body. She has pain to palpation over the greater trochanter of the right hip and a minor superficial abrasion.) Neurologic/Psychiatric: other (the patient recognizes her name and will smile and talk to but does not seem to indicate yes or no and answered any questions.) Jax Coma Score Best Eye Response: (4) Open Spontaneously Best Verbal Response: (1) No Verbal Response Best Motor Response: (5) Localizes to Pain Jax Total: 10 Progress/Results/Core Measures Results/Orders My Orders Orders - ROJAS CISNEROS Ketorolac Injection (Toradol Injection) (06/20/18 18:30) Knee, Right, 3 Views (06/20/18 18:30) Hip, Right, 2 Views (06/20/18 18:30) Ketorolac Injection (Toradol Injection) (06/20/18 18:26) Medications Given in ED Current Medications Medications Dose Ordered Sig/José Route Start Time Stop Time Status Last Admin Dose Admin Ketorolac Tromethamine 30 mg ONCE ONCE IM 06/20/18 18:30 06/20/18 18:31 DC 06/20/18 18:34 30 MG Vital Signs/I&O 06/20/18 18:25 Temp 98.4 Pulse 66 Resp 18 B/P (MAP) 148/88 (108) Pulse Ox 97 Progress Progress Note #1: Time: 18:36 Progress Note Patient's on hospice and if we can collect a urine specimen easily we will. We will going get x-ray of the hip and knee looking for obvious fractures could be helped. Regular her some Toradol since she does seem to have some pain on outpatient over her right hip. Overall she does not seem very uncomfortable. Progress Note #2: Time: 19:28 Progress Note Sat monitor did indicate the patient had a heart rate of 240 however on examination the patient she is having a essential tremor that was present when she came here. Palpitation of her radial pulse indicates about 60-70 heart rate. We put her on telemetry and it demonstrates a more accurate picture. Diagnostic Imaging Diagonstic Imaging: Xray Plain Films/CT/US/NM/MRI: hip (r) Comments VIA [facility]. [place], [place] NAME: JACE PARKER [facility] REC#: [id number] PT STATUS: REG ER : 1935 PHYSICIAN: ROJAS CISNEROS MD ADMIT DATE: 06/20/18/ER Draft Date of Exam:06/20/18 HIP, RIGHT, 2 VIEWS INDICATION: Fall, right hip pain. EXAMINATION: Two views of the right hip were obtained. FINDINGS: No fracture, dislocation or other abnormality. IMPRESSION: No acute abnormality is seen. Dictated on workstation # [id number] Dict: 06/20/181911 Trans: 06/20/181914 [facility] [id number] Interpreted by: ALEXIS GAINES MD Electronically signed by: Reviewed: Reviewed by Me Diagonstic Imaging: Xray Plain Films/CT/US/NM/MRI: knee (r) Comments VIA [facility]. [place], [place] NAME: JACE PARKER [facility] REC#: [id number] PT STATUS: REG ER : 1935 PHYSICIAN: ROJAS CISNEROS MD ADMIT DATE: 06/20/18/ER Draft Date of Exam:06/20/18 KNEE, RIGHT, 3 VIEWS INDICATION: Fall, right knee pain 3 views of the right knee show no fracture, dislocation or other acute bony abnormality. There are tricompartmental degenerative changes present. IMPRESSION: No acute abnormality is seen. Dictated on workstation # [id number] Dict: 06/20/181910 Trans: 06/20/181914 [facility] [id number] Interpreted by: ALEXIS GAINES MD Electronically signed by: Reviewed: Reviewed by Me Departure Impression Primary Impression: Fall Qualified Codes: W19.XXXA - Unspecified fall, initial encounter Disposition: 01 HOME, SELF-CARE Condition: Stable Departure-Patient Inst. Decision time for Depature: 19:30 Referrals: GHADA TAVERAS DO (PCP/Family) Primary Care Physician Patient Instructions: Contusion (DC) Add. Discharge Instructions: Return to the assisted and follow-up with primary care for concerns. Copy Copies To 1: GHADA TAVERAS TITUS J Jun 20, 2018 18:40
--- NOTE | 2018-06-20 19:15 | Diagnostic Imaging Report ---
INDICATION: Fall, right knee pain 3 views of the right knee show no fracture, dislocation or other acute bony abnormality. There are tricompartmental degenerative changes present. IMPRESSION: No acute abnormality is seen. Dictated by: Dictated on workstation # [id number]
--- NOTE | 2018-06-20 19:15 | Diagnostic Imaging Report ---
INDICATION: Fall, right hip pain. EXAMINATION: Two views of the right hip were obtained. FINDINGS: No fracture, dislocation or other abnormality. IMPRESSION: No acute abnormality is seen. Dictated by: Dictated on workstation # [id number]
[2018-06-20 19:49] VITALS: BP 148/88
== END 2018-06-20 19:51 | disposition home or self-care (01) ==
LOC: EDUNIT# 18:25 → ER 18:26
DX: S80.211A Abrasion, right knee, initial encounter (principal); G30.9 Alzheimer's disease, unspecified; F03.90 Unspecified dementia, unspecified severity, without behavioral disturbance, psychotic disturbance, mood disturbance, and anxiety; F32.9 Major depressive disorder, single episode, unspecified; D64.9 Anemia, unspecified; R40.2142 Coma scale, eyes open, spontaneous, at arrival to emergency department; R40.2212 Coma scale, best verbal response, none, at arrival to emergency department; R40.2362 Coma scale, best motor response, obeys commands, at arrival to emergency department; Z87.19 Personal history of other diseases of the digestive system; Z87.440 Personal history of urinary (tract) infections; Z86.73 Personal history of transient ischemic attack (TIA), and cerebral infarction without residual deficits; W19.XXXA Unspecified fall, initial encounter; Y92.129 Unspecified place in nursing home as the place of occurrence of the external cause
CPT/HCPCS: 73502; 73562; 96372